=== PATIENT | female | born 1985 | race Caucasian/White ===

== ENCOUNTER 2017-11-04 21:53 | Emergency (ER) | payer SELFPAY ==
[2017-11-04 21:59] VITALS: BP 123/95; PULSE 93; PULSE 94; RESP 17; RESP 18; TEMP 37; O2SAT 98; BMI 23.4
--- NOTE | 2017-11-04 23:07 | RAD_ITS ---
STUDY: X-RAY CHEST REASON FOR EXAM: Female, 32 years old. Cough TECHNIQUE: Frontal and lateral views of the chest. COMPARISON: 12/07/2016 FINDINGS: The lungs are clear and expanded. There is no demonstrated pleural abnormality. Normal size heart. Normal mediastinum and beckie. Normal visualized pulmonary arteries. Normal visualized aortic arch and descending thoracic aorta. Normal visualized thoracic spine. Normal visualized ribs, clavicles, and shoulders. There is no demonstrated abnormality of the visualized soft tissue structures of the upper abdomen. RAD/Chest PA and Lateral IMPRESSION: Normal x-ray examination of the chest. Electronically Signed: Riley Miranda MD at 0:01 EDT Tel , Service support ,
--- NOTE | 2017-11-04 23:08 | RAD_ITS ---
STUDY: X-RAY - LUMBAR SPINE REASON FOR EXAM: Female, 32 years old. Fall TECHNIQUE: 3 view(s) of the lumbar spine were obtained. COMPARISON: None FINDINGS: Normal lumbar lordosis. There is no substantial scoliosis. There is a normal alignment of the vertebrae. Normal vertebral bodies and endplates. Normal disc space heights. Fallopian tube clips. RAD/Lumbar Spine 2 or 3 Views IMPRESSION: Normal x-ray examination of the lumbar spine. Comment: If there is further clinical concern for a radiographically occult spinal fracture, consider CT correlation if possible. Electronically Signed: Riley Miranda MD at 0:03 EDT Tel , Service support ,
[2017-11-04] MEDS: 0.9% Normal Saline 1,000 ML 150 ML IV (23:31)
[2017-11-04 23:48] LABS: Absolute Lymphocyte Count 4.09 X10^3/ul (0.83-4.51); Absolute Neutrophil Count 2.5 X10^3/uL (2.0-7.7); Basophil# 0.03 X10^3/uL; Basophil% 0.4 % (0-1); Eosinophils% 2.5 % (0-5); Hematocrit 42.5 % (37-47); Hemoglobin 13.8 g/dl (12.0-15.0); Lymphocyte # 4.09 X10^3/ul (4.0); Lymphocyte % 51.9 % (19-41); Mean Corp Hgb Conc 32.5 g/gl (32-36); Mean Corpuscular Hgb 30.5 pg (27.0-32.0); Mean Platelet Vol. 9.8 fl (6.2-12.0); Monocyte# 1.01 X10^3/uL; Monocyte% 12.8 % (0-10); Neutrophil # 2.54 X10^3/uL (2.7-7.7); Neutrophil % 32.3 % (47-70); Platelet Count 354 K/mm3 (150-450); RBC Distribution Width CV 13.3 % (11.6-14.6); RBC Distribution Width SD 44.3 fl (35.1-43.9); Red Blood Count 4.52 M/mm3 (4.2-5.4); White Blood Count 7.9 K/mm3 (4.4-11.0)
[2017-11-04 23:55] LABS: Mucous, Urine 0 SEEN /hpf (<or=2+); Red Blood Cells-Urine 0 SEEN /hpf (0-5)
[2017-11-04 23:56] LABS: Anion Gap 3 (5-15); BUN 10 mg/dL (7-18); BUN/Creat Ratio 17.4 RATIO (10-20); Calcium,Total 8.6 mg/dL (8.5-10.1); Chloride 104 mmol/L (98-107); Creatinine, Serum 0.58 mg/dL (0.55-1.02); EST Glomerular Filtration Rate 129 mL/min (>60); Est Glom Filt Rate - Afr Amer 156 mL/min (>60); Estimated Creatinine Clearance 110.13 ml/min; Glucose 84 mg/dL (74-106); Potassium 4.3 mmol/L (3.5-5.1); Sodium Level 140 mmol/L (136-145)
[2017-11-05 00:01] LABS: Color, Urine Yellow (Yellow); Glucose, Dipstick Normal (Normal); Ketone-Dipstick Negative (Negative); Leukocyte Esterase-Dipstick 25 /ul (Negative); Nitrite-Dipstick Negative (Negative); Occult Blood-Urine Negative /ul (Negative); Protein-Dipstick Negative (Negative); Specific Gravity, Urine 1.015 (1.002-1.030); Urine Bilirubin Dipstick Negative (Negative); Urine Clarity Cloudy (Clear); Urine Urobilinogen Normal (Normal)
[2017-11-05 00:02] LABS: POSITIVE COUNT NO; POSITIVE DIFFERENTIAL NO; POSITIVE MORPHOLOGY NO
[2017-11-05 00:12] LABS: Amorphous Sediment 3+; Bacteria RARE /hpf (None Seen); Squamous Epithelial Cells - UA 0-5 SEEN /hpf (5-10); White Blood Cells 0-5 SEEN /hpf (0-5); Yeast-Urine RARE /hpf (None Seen)
[2017-11-05 01:26] VITALS: BP 96/74; PULSE 76; O2SAT 97
--- NOTE | 2017-11-05 01:35 | ED.VISSUMM ---
- ER Visit Summary Date of Service: 11/05/17 Chief Complaint: [Cough and back pain] History of Present Illness: The patient is a 32 F [presents the emergency department with a cough that started 4 days ago. Patient coughing up some green phlegm at times. Patient generally feels weak and tired. Patient also states that she is had some pain in her back with spasm for about a week. Patient states she has a history of chronic back pain issues but fell a week ago. Patient denies any pain down the legs but at times does have some burning sensation down the back of her legs to her feet. Patient denies any change in bowel or bladder function. Patient denies weakness in extremities. Patient has not had a fever. Patient does have remote history of lymphoma that was in remission for the last 2-3 years. Patient also has a history of osteoporosis and chronic back pain.] Physical Examination: [HEENT-PERRLA, EOMI. Cranial nerves II through XII grossly intact. TMs clear. Mucous membranes moist. No adenopathy. Cardiovascular-regular rate and rhythm without murmur or ectopy Lungs-clear to auscultation, chest wall stable without crepitus or subcu emphysema Abdomen-normoactive bowel sounds, soft, nontender, no rebound or rigidity, no peritoneal signs. Back exam-patient has diffuse tenderness over lumbar spine. There is no ecchymosis or bruising noted. Deep tendon reflexes are plus 2 out of 4 bilaterally at the patella and Achilles. Patient has normal L5 extension bilaterally. Extremities-intact ?4, normal range of motion, normal pulses, atraumatic] Test Results: [Chest x-ray obtained was normal. Lumbar x-rays were normal. Patient had a CBC with differential that was normal. Chemistries were normal. Urinalysis was normal.] Emergency Department Course and Treatment: [] Treatment Plan: [She will be given a prescription for Tessalon Perles and 12 Percocet for severe pain. Patient advised to follow-up with her primary care physician within next 5-7 days.] Disposition: [Discharged home in stable condition. Patient advised to return if increased difficulty breathing, worsening back pain, weakness in the extremities, change in bowel or bladder function, or condition should worsen in any way.] Impression: [Viral URI Back pain-acute on chronic] This note was generated with [employer] software. It may contain incorrect words, spelling, and punctuation that were not noted in review of the chart prior to signing ED Disposition - Plan for ED Patient: Chief Complaint: Cough Referrals: Shruthi Amor MD [Primary Care Provider] -
--- NOTE | 2017-11-05 01:38 | ED.DEP ---
ED Disposition - Plan for ED Patient: Chief Complaint: Cough Instructions: ED Upper Resp Infec No Abx Tx, ED Low Back Pain Injury Prescriptions: Oxycodone HCl/Acetaminophen [Percocet 5/325] 1 tab PO Q6H PRN PRN 3 Days #12 tab PRN Reason: Pain Benzonatate [Tessalon Perle] 200 mg PO TID PRN PRN #20 cap PRN Reason: Cough Referrals: Shruthi Aomr MD [Primary Care Provider] - 5-7 Days
[2017-11-05] MEDS: oxyCODONE 5 MG Tablet PO (02:10)
== END 2017-11-05 02:11 | disposition home or self-care (01) ==
PROVIDERS: Emergency Provider Emergency Medicine; Family Provider Internal Medicine; PCP Internal Medicine
DX: J06.9 Acute upper respiratory infection, unspecified (principal); M54.9 Dorsalgia, unspecified; G89.29 Other chronic pain; Z72.0 Tobacco use; Z85.79 Personal history of other malignant neoplasms of lymphoid, hematopoietic and related tissues
CPT/HCPCS: 71046; 72100; 80048; 81001; 85025; 96360; 96361; 99283; J7030

== ENCOUNTER 2018-02-09 23:47 | Emergency (ER) | payer SELFPAY ==
[2018-02-09 23:49] VITALS: BP 107/77; PULSE 94; RESP 18; TEMP 36.4; O2SAT 98; BMI 22.8
--- NOTE | 2018-02-10 01:04 | ED.VISSUMM ---
- ER Visit Summary Date of Service: 02/10/18 Chief Complaint: Back pain History of Present Illness: The patient is a 33 F presenting with back pain. She states that this has been going on for the past 3 weeks. She states she was wrestling around with her kids before this started. She complains of back pain and right hip pain. No direct trauma to her hip. She has been ambulating without difficulty. She has an appointment with her orthopedic surgeon on February 14. She has been using Tylenol and ibuprofen at home for pain. Denies bowel or bladder incontinence. Denies numbness or weakness. Denies other complaints. Physical Examination: Vitals are stable. Patient is afebrile. Alert no acute distress. HEENT exam is unremarkable. Neck is supple. Lungs are clear and equal bilaterally. Heart is regular rate and rhythm. Abdomen is soft nontender nondistended. Back: Right paraspinal lumbar muscle tenderness, no midline tenderness Extremities are unremarkable. Skin is warm and dry. No focal neurologic deficit. Normal strength and sensation Remainder of exam is unremarkable. Emergency Department Course and Treatment: Patient is given Toradol, Norflex IM. She is advised to continue her Tylenol and ibuprofen at home. Advised to follow-up with her orthopedic surgeon. Advised return to ED for worsening complaints. Disposition: Discharge home Impression: Lumbar strain This note was generated with [employer] dictation software. It may contain incorrect words, spelling, and punctuation that were not noted in review of the chart prior to signing ED Disposition - Plan for ED Patient: Chief Complaint: Back Referrals: Shruthi Amor MD [Primary Care Provider] -
[2018-02-10] MEDS: Orphenadrine 60 MG/2 ML Ampul IM (01:06)
[2018-02-10] MEDS: Ketorolac 60 MG/2 ML Vial IM (01:06)
--- NOTE | 2018-02-10 01:07 | ED.DEP ---
ED Disposition - Plan for ED Patient: Chief Complaint: Back Instructions: ED Sprain Strain Lumbar Referrals: Shruthi Amor MD [Primary Care Provider] -
[2018-02-10 01:22] VITALS: BP 100/48; PULSE 81; RESP 18; O2SAT 96
== END 2018-02-10 01:23 | disposition home or self-care (01) ==
LOC: ED 02-10 00:58
PROVIDERS: Emergency Provider Emergency Medicine; Family Provider Internal Medicine; PCP Internal Medicine
DX: S39.012A Strain of muscle, fascia and tendon of lower back, initial encounter (principal); X58.XXXA Exposure to other specified factors, initial encounter; Y93.72 Activity, wrestling; Y92.9 Unspecified place or not applicable; Z96.643 Presence of artificial hip joint, bilateral; Z72.0 Tobacco use
CPT/HCPCS: 96372; 99282

== ENCOUNTER 2018-08-11 15:42 | Emergency (ER) | payer MEDICAID, SELFPAY ==
[2018-08-11 15:43] VITALS: BP 120/47; PULSE 131; RESP 16; TEMP 36.7; O2SAT 97; BMI 23.0
--- NOTE | 2018-08-11 15:52 | RAD_ITS ---
STUDY: X-RAY - RIGHT HIP REASON FOR EXAM: Female, 33 years old. Right hip and back pain. TECHNIQUE: 2 views of the hip and a single image of the pelvis. COMPARISON: July 20, 2016 FINDINGS: There are mild degenerative changes of the hips. Normal visualized superior and inferior pubic rami and ischial tuberosities. There are tubal ligation clips within the left pelvis. RAD/HIP, UNI W/ Pelvis 2-3 Views IMPRESSION: Mild degenerative changes of the hips. Electronically Signed: Tish Palacios MD at 16:17 EST Tel , Service support ,
--- NOTE | 2018-08-11 15:53 | ED.VISSUMM ---
- ER Visit Summary Date of Service: 08/11/18 Chief Complaint: Right hip pain History of Present Illness: The patient is a 33 F who has pain in the right hip and right lower back. She states it woke her up from sleep this morning. She denies any injuries. The pain is in the right hip and radiates to the right lumbar area. Is worse with movement. Nothing makes it better. She tried Tylenol, Motrin and Aleve. She denies dysuria or fever. No incontinence. She states she has a history of right hip surgery and has had IT band release surgeries previously. She has a history of lymphoma and had TTP about 10 years ago. Physical Examination: Vital signs reviewed. HEENT exam unremarkable. Heart is tachycardic and regular without murmurs. Lungs are clear. Abdomen soft with right pelvic tenderness to palpation. She has tenderness in the right paraspinal lumbar area. Her right hip is tender to palpation diffusely. She has pain with any range of motion. Skin exam reveals an old abscess in the right axilla. Her neurologic exam is normal. Test Results: Right hip x-ray reveals degenerative changes. Urinalysis reveals UTI Emergency Department Course and Treatment: Patient was given Toradol for pain. She does have a pretty significant urinary tract infection. I will treat her with Bactrim. I will give her Dolobid for pain at home. She will follow-up with her PCP Treatment Plan: [] Disposition: Discharge Impression: Right hip pain, UTI This note was generated with [employer] dictation software. It may contain incorrect words, spelling, and punctuation that were not noted in review of the chart prior to signing ED Disposition - Plan for ED Patient: Chief Complaint: Back Referrals: Shruthi Amor MD [Primary Care Provider] -
[2018-08-11] MEDS: Ketorolac 60 MG/2 ML Vial IM (16:00)
[2018-08-11 18:13] LABS: Mucous, Urine 0 SEEN /hpf (<or=2+); Red Blood Cells-Urine 0 SEEN /hpf (0-5)
[2018-08-11 18:22] LABS: Color, Urine Yellow (Yellow); Glucose, Dipstick Normal (Normal); Ketone-Dipstick Negative (Negative); Leukocyte Esterase-Dipstick 500 /ul (Negative); Nitrite-Dipstick Positive (Negative); Occult Blood-Urine 50 /ul (Negative); Protein-Dipstick 30 mg/dl (Negative); Urine Bilirubin Dipstick Negative (Negative); Urine Clarity Cloudy (Clear); Urine Urobilinogen Normal (Normal)
[2018-08-11 18:25] LABS: Internal QC Validated? YES +Cl - CLEAR BKGD; Pregnancy, Urine Negative Negative
[2018-08-11 18:35] LABS: Squamous Epithelial Cells - UA 0-5 SEEN /hpf (5-10); White Blood Cells >100 SEEN /hpf (0-5)
[2018-08-11 18:36] LABS: Bacteria 3+ /hpf (None Seen)
--- NOTE | 2018-08-11 18:39 | ED.DEP ---
ED Disposition - Plan for ED Patient: Disposition: Home or Assisted Living Chief Complaint: Back Instructions: ED UTI Cystitis Female Prescriptions: Nitrofurantoin Macrocrystals [Macrobid] 100 mg PO Q12 #14 cap Diflunisal [Dolobid] 500 mg PO TID #20 tab Referrals: Shruthi Amor MD [Primary Care Provider] -
[2018-08-11] MEDS: Nitrofurantoin Macrocrystals 100 MG Capsule PO (18:46)
--- NOTE | 2018-08-11 18:49 | ED.RN ---
DISCHARGE INSTRUCTIONS GIVEN TO AND REVIEWED WITH PATIENT, PATIENT DENIES QUESTIONS OR CONCERNS AND VOICES UNDERSTANDING OF DISCHARGE INSTRUCTIONS. PT AMBULATES OUT OF ROOM WITHOUT DIFFICULTY.
== END 2018-08-11 18:50 | disposition home or self-care (01) ==
PROVIDERS: Emergency Provider Emergency Medicine; Family Provider Internal Medicine; PCP Internal Medicine
DX: M25.551 Pain in right hip (principal); N39.0 Urinary tract infection, site not specified; Z85.79 Personal history of other malignant neoplasms of lymphoid, hematopoietic and related tissues; Z72.0 Tobacco use
CPT/HCPCS: 73502; 81001; 81025; 96372; 99283

== ENCOUNTER 2018-10-11 18:09 | Inpatient (IN) | payer MEDICAID, SELFPAY ==
[2018-10-11 18:10] VITALS: BP 99/67; PULSE 91; RESP 18; TEMP 36.6; O2SAT 100; BMI 25.2
--- NOTE | 2018-10-11 18:24 | CT_ITS ---
STUDY: CT ABDOMEN AND PELVIS WITHOUT CONTRAST REASON FOR EXAM: Female, 33 years old. Abdominal pain, jaundice RADIATION DOSAGE (If Supplied By Facility): CTDIvol = ( 11.43 ) mGy, DLP = ( 640.84 ) mGycm TECHNIQUE: Transaxial images were obtained from the dome of the diaphragm to the symphysis pubis without oral contrast, and without intravenous contrast. Sagittal and coronal images were reconstructed. Individualized dose optimization techniques were used for this CT. COMPARISON: July 20, 2016 FINDINGS: The visualized lung bases are unremarkable. The visualized portions of the heart are within normal limits. Normal liver. Normal gallbladder and extrahepatic biliary system. Questionable trace pericholecystic fluid. Normal spleen. Normal pancreas. Normal bilateral adrenal glands. Normal right kidney. Normal left kidney. Normal visualized stomach. Mild ileus of the proximal small intestine. Normal colon. The appendix is visualized and appears normal. Normal abdominal aorta. Normal inferior vena cava. Normal retroperitoneum. Normal urinary bladder. Mild pelvic fluid. Left adnexal 1.5 cm cystic nodule. Normal abdominal wall. Normal osseous structures. CT/Abdomen/Pelvis W IV Cont ONLY IMPRESSION: Possible small bowel ileus. Mild pelvic fluid. Small left adnexal cystic nodule. Electronically Signed: Young Victor DO at 20:58 EDT Tel [phone], Service support ,
--- NOTE | 2018-10-11 18:25 | ED.VISSUMM ---
- ER Visit Summary Date of Service: 10/11/18 Chief Complaint:, Pain, jaundice History of Present Illness: The patient is a 33 F who presents with abdominal pain as well as jaundice. She states the pain started yesterday. It sharp and diffuse throughout her abdomen. Nothing makes it better or worse. She has had nausea without vomiting. No diarrhea or constipation. She denies any urinary symptoms. She feels weak. She has no history of jaundice in the past. The jaundice has been ongoing for 4 days. She has no history of cirrhosis or any liver issues. She denies fevers. She has a history of a tubal ligation and has had tumors removed because of lymphoma but no other abdominal surgeries. Physical Examination: Vital signs reviewed. HEENT exam unremarkable. Heart is regular rate and rhythm without murmurs. Lungs are clear to auscultation. Abdomen is soft with diffuse tenderness. There is no guarding or rebound tenderness. Extremities reveal no edema. Skin exam showed jaundice. Neurologic exam normal. Test Results: CBC unremarkable except for platelets of 483. Potassium 3.2, glucose 108. Total bilirubin 9.7, direct bili of 7.87. ALT 1176, AST 921. Lipase normal. CAT scan reveals a small bowel ileus with some mild pelvic fluid. Right upper quadrant ultrasound is normal Emergency Department Course and Treatment: Patient was given morphine and Zofran. She still required more pain medications were given fentanyl. Her gallbladder is normal. I am unclear the etiology of her jaundice and hyperbilirubinemia. Patient will require admission. I will add on an acute hepatitis panel. Patient will be discussed with the hospitalist for admission Treatment Plan: [] Disposition: Admit Impression: Jaundice, transaminitis This note was generated with [employer] dictation software. It may contain incorrect words, spelling, and punctuation that were not noted in review of the chart prior to signing ED Disposition - Plan for ED Patient: Referrals: Shruthi Amor MD [Primary Care Provider] -
[2018-10-11] MEDS: Morphine 4 MG/ML Syringe IV ×2 (18:46→23:22)
[2018-10-11] MEDS: Ondansetron 4 MG/2 ML Vial IV ×2 (18:46→23:22)
[2018-10-11 18:48] LABS: Absolute Lymphocyte Count 2.78 X10^3/ul (0.83-4.51); Absolute Neutrophil Count 5.4 X10^3/uL (2.0-7.7); Basophil# 0.05 X10^3/uL; Basophil% 0.5 % (0-1); Differential Indicated SCAN CRITERIA MET; Eosinophil# 0.13 X10^3/uL; Eosinophils% 1.4 % (0-5); Hematocrit 38.7 % (37-47); Hemoglobin 13.1 g/dl (12.0-15.0); Lymphocyte # 2.78 X10^3/ul (4.0); Lymphocyte % 28.9 % (19-41); Mean Corp Hgb Conc 33.9 g/gl (32-36); Mean Corpuscular Hgb 28.4 pg (27.0-32.0); Mean Corpuscular Volume 83.9 fL (81-99); Mean Platelet Vol. 9.8 fl (6.2-12.0); Monocyte# 1.22 X10^3/uL; Monocyte% 12.7 % (0-10); Neutrophil # 5.42 X10^3/uL (2.7-7.7); Neutrophil % 56.3 % (47-70); POSITIVE COUNT NO; POSITIVE DIFFERENTIAL NO; POSITIVE MORPHOLOGY YES; Platelet Count 483 K/mm3 (150-450); RBC Distribution Width CV 22.4 % (11.6-14.6); RBC Distribution Width SD 64.7 fl (35.1-43.9); Red Blood Count 4.61 M/mm3 (4.2-5.4); White Blood Count 9.6 K/mm3 (4.4-11.0)
[2018-10-11 19:11] LABS: AST(SGOT) 921 U/L (15-37); Alanine Aminotransfer ALT/SGPT 1176 U/L (13-56); Albumin, Serum 2.9 g/dL (3.2-5.0); Alkaline Phosphatase 446 U/L (45-117); Anion Gap 7 (5-15); BUN 6 mg/dL (7-18); BUN/Creat Ratio 10.3 RATIO (10-20); Bilirubin, Direct 7.87 mg/dL (0.00-0.30); Calcium,Total 8.4 mg/dL (8.5-10.1); Chloride 103 mmol/L (98-107); Creatinine, Serum 0.58 mg/dL (0.55-1.02); EST Glomerular Filtration Rate 127 mL/min (>60); Est Glom Filt Rate - Afr Amer 153 mL/min (>60); Estimated Creatinine Clearance 109.11 ml/min; Globulin 4.2 g/dL (2.2-4.2); Glucose 108 mg/dL (74-106); Lipase 97 U/L (73-393); Potassium 3.2 mmol/L (3.5-5.1); Pregnancy, Serum, hCG Quali. NEGATIVE Negative (0-9 Nonpreg); Protein, Total 7.1 g/dL (6.4-8.2); Sodium Level 136 mmol/L (136-145)
[2018-10-11 20:14] LABS: Anisocytosis 2+; Differential Comment SCANNED; Platelet Estimate SLT INC (ADEQ); Target Cells 2+
[2018-10-11 20:15] LABS: Atypical Lymphocyte RARE %
[2018-10-11 20:26] LABS: Mucous, Urine 0 SEEN /hpf (<or=2+); Red Blood Cells-Urine 0 SEEN /hpf (0-5)
[2018-10-11] MEDS: fentaNYL 100 MCG/2 ML Ampul 50 MCG IV (20:26)
[2018-10-11 20:49] LABS: Color, Urine Yellow (Yellow); Glucose, Dipstick Normal (Normal); Ketone-Dipstick Negative (Negative); Leukocyte Esterase-Dipstick 100 /ul (Negative); Nitrite-Dipstick Negative (Negative); Occult Blood-Urine Negative /ul (Negative); Protein-Dipstick Negative (Negative); Urine Clarity Cloudy (Clear); Urine Urobilinogen 4 mg/dl (Normal)
[2018-10-11 20:59] LABS: Urine Bilirubin Dipstick 3 mg/dL (Negative)
--- NOTE | 2018-10-11 21:00 | US_ITS ---
STUDY: ABDOMINAL ULTRASOUND - RIGHT UPPER QUADRANT REASON FOR VISIT: Female, 33 years old. Jaundice abdominal discomfort and nausea TECHNIQUE: Ultrasound evaluation of the right upper quadrant was performed with real-time and static german-scale imaging. TECHNICAL QUALITY: Adequate. COMPARISON: None. FINDINGS: Liver: The liver measures 18.7 cm. There is normal echogenicity of the liver. The bile ducts are within normal limits. There is hepatic color flow. The direction of portal flow is hepatopetal. There is no demonstrated mass lesion. Gallbladder: Normal distended gallbladder. The gallbladder wall measures 2 mm. There is a negative sonographic Renee's sign. There is no pericholecystic fluid. There are no gallstones. Common Bile Duct (C.B.D.): The common bile duct measures 5 mm. Pancreas: Normal size of the head, body and tail of the pancreas. There is normal echogenicity of the pancreas. There is no demonstrated pancreatic mass or cyst. Right Kidney: Normal size of the right kidney. The right kidney measures 11.1 x 4.2 x 3.9 cm. Normal renal cortex. The right cortex measures 1.5 cm. There is no demonstrated renal mass or cyst. There is no right hydronephrosis. US/Gallbladder IMPRESSION: Normal right upper quadrant ultrasound examination. Electronically Signed: Marcelino Gray MD at 23:03 EDT , Service support ,
[2018-10-11 21:01] LABS: Bacteria 1+ /hpf (None Seen); Squamous Epithelial Cells - UA 0-5 SEEN /hpf (5-10); White Blood Cells 0-5 SEEN /hpf (0-5)
[2018-10-11 23:25] VITALS: BP 108/73; PULSE 84; RESP 16; O2SAT 97
--- NOTE | 2018-10-11 23:32 | HP.PCM_ITS ---
Problem List (1) Acute hepatitis Status: Acute (2) History of lymphoma Status: Chronic History of Present Illness Date of Admission: 10/11/18 Chief Complaint: Yellowish discoloration of skin The patient is a 33 year old F with a significant history of asthma; previous tobacco abuse; lymphoma status post remission; who reportedly got treated for some bladder infection in June 2018 now presenting with 4 days history of persistent yellowish discoloration of her skin that was noticed by her family. Associated with her symptoms is weakness; nausea; vomiting and headache. Patient reports that on the day of presentation he took a one-time dose of 4 tablets of 500 mg of Tylenol because of headache. She reported that she is unable to take NSAIDs because of history of bleeding. She reported that her boyfriend is at the halfway right now and the last time she had any sexual intercourse with his boyfriend was in August 2018. His sexual affair has been unprotected with his boyfriend. At the emergency department patient was noted to have elevated liver enzymes as well as hypokalemia. Ultrasound of her gallbladder was unremarkable for hepatobiliary disease. CT of her abdomen showed possible small bowel ileus; mild pelvic fluid and small left adrenal cystic nodule. Emergency department doctor ordered an acute hepatitis panel. Past Medical History Past Medical History (Chronic Problems): Chronic Problems History of lymphoma (Chronic) COPD (chronic obstructive pulmonary disease) (Chronic) Asthma (Chronic) Allergies aspirin Allergy (Verified 10/11/18 18:13) Other cyclobenzaprine HCl [From Flexeril] Allergy (Verified 10/11/18 18:13) Hives hydrocodone bitartrate [From Vicodin] Allergy (Verified 10/11/18 18:13) Hives morphine Allergy (Verified 10/11/18 18:13) Swelling naproxen Allergy (Verified 10/11/18 18:13) Chest tightness Penicillins Allergy (Verified 10/11/18 18:13) Unknown Sulfa (Sulfonamide Antibiotics) Allergy (Verified 10/11/18 18:13) Laryngospasms tramadol Allergy (Verified 10/11/18 18:13) Chest tightness Home Medications: Ambulatory Orders Medication Instructions Recorded Albuterol Inhaler [Ventolin Hfa 2 puff INHALATION Q6H PRN PRN 10/11/18 (SP)] Surgical History: - - Surgery for lymphoma removal. Lives: With Family Smoking Status: Current every day smoker Tobacco Use: Cigarettes - *Family History Maternal History Items: Heart Disease - Her mother from massive heart attack, - - brain cancer and lymphoma; mental illness Paternal History Items: Cancer, Heart Disease, Hypertension, - - Mental illness Review of Systems Constitutional: Reports: Fatigue. Denies: Chills, Fever, Weight Change HEENT: Reports: Head Aches. Denies: Sinus Congestion, Sinus Drainage Cardiovascular: Denies: Chest Pain, Palpitations Respiratory: Denies: Cough, Shortness of breath at rest, Sputum production Gastrointestinal: Reports: Abdominal Pain, Nausea, Vomiting Genitourinary: Denies: Dysuria Musculoskeletal: Denies: Joint Pain, Joint Tenderness Skin: Denies: Rash, Wounds Neurological: Denies: Numbness, Tingling, Focal weakness Psychiatric: Denies: Anxiety, Depression, Homicidal Ideations, Suicidal Ideations Hematologic/ Lymphatic: Denies: Easy Bruising, Easy Bleeding VTE Information - Inpt Only VTE Present on Admission: No VTE Mechan Device Prophylaxis: None VTE Pharm Prophylaxis ordered?: No Reason prophylaxis not ordered:: Treatment Not Indicated - Low risk Patient Problems: Active and Suspected Problems Acute hepatitis (Acute) - Physical Exam General: Alert, Oriented x3, Cooperative, - - Patient seen visibly scratching her body and complain of itching. HEENT: Atraumatic, PERRLA, EOMI, Normocephalic, - - Scleral icterus Neck: Supple, No JVD, Negative Carotid Bruits Lungs: Clear to auscultation, Normal air movement Cardiovascular: Regular rate, No murmurs Abdomen: Bowel Sounds Present, Soft, Non Tender Extremities: No edema, Capillary Refill Less than 3 Seconds Skin: No rashes, No breakdown, - - Jaundiced skin Musculoskeletal: No Tenderness to Palpation of Joints or Extremities Neurological: Neuro grossly intact Psych/Mental Status: Normal Affect, Appropriate Vital Signs Temp Pulse Resp BP Pulse Ox 97.9 F 84 16 108/73 97 10/11/18 18:10 10/11/18 23:25 10/11/18 23:25 10/11/18 23:25 10/11/18 23:25 Oxygen Delivery Method Room Air Weight: 62.596 kg Body Mass Index (BMI) 25.2 Laboratory Tests Past 24 Hrs 10/11/18 10/11/18 10/11/18 18:30 18:30 18:30 WBC 9.6 RBC 4.61 Hgb 13.1 Hct 38.7 MCV 83.9 MCH 28.4 MCHC 33.9 RDW 22.4 H RDW Differential 64.7 H Plt Count 483 H MPV 9.8 Immature Gran % (Auto) 0.200 Neut % (Auto) 56.3 Lymph % (Auto) 28.9 [place] % (Auto) 12.7 H Eos % (Auto) 1.4 Baso % (Auto) 0.5 Absolute Neuts (auto) 5.4 Absolute Lymphs (auto) 2.78 Total Counted Not Reportable Differential Comment SCANNED Atypical Lymphocytes RARE Platelet Estimate SLT INC Anisocytosis 2+ Target Cells 2+ Sodium 136 Potassium 3.2 L Chloride 103 Carbon Dioxide 26.0 Anion Gap 7 BUN 6 L Creatinine 0.58 Estim Creat Clear Calc 109.11 Est GFR (MDRD) Af Amer 153 Est GFR (MDRD) Non-Af 127 BUN/Creatinine Ratio 10.3 Glucose 108 H Calcium 8.4 L Total Bilirubin 9.70 H Direct Bilirubin 7.87 H AST 921 H ALT 1176 H Alkaline Phosphatase 446 H Total Protein 7.1 Albumin 2.9 L Globulin 4.2 Lipase 97 Serum , Qual NEGATIVE Urine Color Urine Clarity Urine pH Ur Specific [place] Urine Protein Urine Glucose (UA) Urine Ketones Urine Occult Blood Urine Nitrite Urine Bilirubin Urine Urobilinogen Ur Leukocyte Esterase Urine RBC Urine WBC Ur Squamous Epith Cells Urine Bacteria Urine Mucus 10/11/18 20:18 WBC RBC Hgb Hct MCV MCH MCHC RDW RDW Differential Plt Count MPV Immature Gran % (Auto) Neut % (Auto) Lymph % (Auto) [place] % (Auto) Eos % (Auto) Baso % (Auto) Absolute Neuts (auto) Absolute Lymphs (auto) Total Counted Differential Comment Atypical Lymphocytes Platelet Estimate Anisocytosis Target Cells Sodium Potassium Chloride Carbon Dioxide Anion Gap BUN Creatinine Estim Creat Clear Calc Est GFR (MDRD) Af Amer Est GFR (MDRD) Non-Af BUN/Creatinine Ratio Glucose Calcium Total Bilirubin Direct Bilirubin AST ALT Alkaline Phosphatase Total Protein Albumin Globulin Lipase Serum , Qual Urine Color Yellow Urine Clarity Cloudy Urine pH 7.0 Ur Specific [place] 1.010 Urine Protein Negative Urine Glucose (UA) Normal Urine Ketones Negative Urine Occult Blood Negative Urine Nitrite Negative Urine Bilirubin 3 H Urine Urobilinogen 4 H Ur Leukocyte Esterase 100 H Urine RBC 0 SEEN Urine WBC 0-5 SEEN Ur Squamous Epith Cells 0-5 SEEN Urine Bacteria 1+ Urine Mucus 0 SEEN Assessment/Plan All Active Problems Acute hepatitis (Acute) Left adnexal tenderness (Acute) Hypokalemia (Acute) Nausea & vomiting (Acute) The patient is a 33 year old F with a significant history of asthma; previous tobacco abuse; lymphoma status post remission; who reportedly got treated for some bladder infection in June 2018 now presenting with 4 days history of persistent yellowish discoloration of her skin and found to have severely elevated liver enzymes consistent for acute hepatitis. Acute hepatitis Abdomen/Pelvis CT: Possible small bowel ileus. Mild perinephric fluid. Small left adnexal cystic nodule. Independent review showed that her liver and gallbladder was unremarkable. Likely possible small bowel ileus may be from inflammation from her hepatitis. US of the gallbladder was unremarkable. This was independently reviewed. I agree with radiologist interpretation. Different diagnosis includes viral hepatitis; hepatic failure secondary to medicine/drug use; or other. Patient noted to have elevated liver enzymes Acute hepatitis panel ordered at the ED; Follow Tylenol level ordered. Supportive treatment with IV normal saline hydration; antiemetics with Zofran; and Benadryl for itching. Patient reports bleeding with NSAIDs. Because of her acute hepatitis will shy away from Tylenol at this time. Tramadol ordered. Hypokalemia On presentation her potassium was 3.2 Lactated Ringer's with 40 mEq of potassium ordered Potassium chloride 40 mEq x1 dose ordered. Trend BMP. Thrombocytosis Chronic Likely due to infection. Trend CBC Asthma Not in acute exacerbation PRN albuterol continued History of drug use Reportedly the patient snorts methamphetamine and heroin. 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 Counselled Tobacco Abuse Counselled Nicotine patch ordered DVT prophylaxis Low risk. Encouraged to ambulate. Code Visit Inpatient E&M: 37137 Init Hosp L3
[2018-10-12 00:30] VITALS: BMI 24.0
[2018-10-12 00:40] VITALS: BMI 24.0
[2018-10-12 01:08] VITALS: BP 109/70; PULSE 86; RESP 18; TEMP 36.7; O2SAT 99
[2018-10-12] MEDS: traMADol 50 MG Tablet PO ×3 (01:28→19:25)
[2018-10-12] MEDS: 0.9% NaCl Peripheral Flush Adult/Peds IV ×2 (01:29→11:43)
[2018-10-12] MEDS: DiphenhydrAMINE 25 MG Capsule PO ×4 (01:34→21:28)
[2018-10-12 01:43] LABS: Acetaminophen (Tylenol) Level < 2.0 ug/mL (10.0-30.0)
[2018-10-12 06:15] VITALS: BP 91/51; PULSE 56; RESP 16; TEMP 37; O2SAT 100
[2018-10-12 06:36] LABS: Hematocrit 35.5 % (37-47); Mean Corp Hgb Conc 33.8 g/gl (32-36); Mean Corpuscular Hgb 28.4 pg (27.0-32.0); Mean Corpuscular Volume 84.1 fL (81-99); Mean Platelet Vol. 10.4 fl (6.2-12.0); Platelet Count 429 K/mm3 (150-450); RBC Distribution Width CV 22.1 % (11.6-14.6); RBC Distribution Width SD 63.6 fl (35.1-43.9); Red Blood Count 4.22 M/mm3 (4.2-5.4); White Blood Count 8.1 K/mm3 (4.4-11.0)
[2018-10-12 06:39] LABS: Scan Indicated on CBC? Y/N YES- FLAGS NOTED
--- NOTE | 2018-10-12 06:50 | PCM.PN.HOSP ---
Patient Problems: Active and Suspected Problems Acute hepatitis (Acute) Subjective: Patient with no acute events overnight per nursing report;, patient states that she still having abdominal pain but is very comfortable appearing and when distracted examination is non-concerning. Patient notes had a bowel movement recently that was normal appearing. She denies any current nausea or emesis. Discussed at length drug abuse and she states she is currently only using cannabis even though current appearance concerning for drug-induced hepatitis and not specifically Tylenol especially given repeat levels are less than 2. Patient denies fevers, chills, chest pain or dyspnea. Objective: Physical Examination: General: awake, alert, oriented x 3 and cooperative, seated upright in bed in no apparent distress. Skin: Jaundiced color, turgor, no icterus, cyanosis. HEENT: AT/NC, EOMI, PERRLA, mildly dry MM, extremely poor dentition with several caries notable. Lungs: CTA bilaterally, moderate effort, mild decrease BL bases, no rales, ronchi or wheezing. Heart: Regular rate and rhythm; no gallop, rub audible. Abdomen: soft, NTTP distracted however when focused on the examination underlies diffuse discomfort, mildly hyperactive bowel sounds, difficult to assess HSM secondary to need for deep palpation. Extremities: no cyanosis, clubbing, or edema. Neurological: patient awake, alert, oriented x 3; cognitive function intact; pupils equally reactive to light and accomodation; cranial nerves II-XII grossly normal, moving all 4 extremities, no focal deficits, strength mildly globally decreased. Psychiatric: affect appears normal, no acute evidence of depressive or anxiety feelings. Vitals/I&O's: Vital Signs Temp Pulse Resp BP Pulse Ox 98.6 F 56 L 16 91/51 L 100 10/12/18 06:15 10/12/18 06:15 10/12/18 06:15 10/12/18 06:15 10/12/18 06:15 Oxygen Delivery Method Room Air Weight: 131 lb 6.328 oz Body Mass Index (BMI) 24.0 Intake and Output for Last 24 Hours 10/10/18 10/11/18 10/12/18 23:59 23:59 23:59 Intake Total 466 / 466 Balance 466 / 466 Laboratory Results 10/11/18 18:30: WBC 9.6, RBC 4.61, Hgb 13.1, Hct 38.7, MCV 83.9, MCH 28.4, MCHC 33.9, RDW 22.4 H, RDW Differential 64.7 H, Plt Count 483 H, MPV 9.8, Immature Gran % (Auto) 0.200, Neut % (Auto) 56.3, Lymph % (Auto) 28.9, [place] % (Auto) 12.7 H, Eos % (Auto) 1.4, Baso % (Auto) 0.5, Absolute Neuts (auto) 5.4, Absolute Lymphs (auto) 2.78, Total Counted Not Reportable, Differential Comment SCANNED, Atypical Lymphocytes RARE, Platelet Estimate SLT INC, Anisocytosis 2+, Target Cells 2+ 10/11/18 18:30: Sodium 136, Potassium 3.2 L, Chloride 103, Carbon Dioxide 26.0, Anion Gap 7, BUN 6 L, Creatinine 0.58, Estim Creat Clear Calc 109.11, Est GFR (MDRD) Af Amer 153, Est GFR (MDRD) Non-Af 127, BUN/Creatinine Ratio 10.3, Glucose 108 H, Calcium 8.4 L, Total Bilirubin 9.70 H, Direct Bilirubin 7.87 H, AST 921 H, ALT 1176 H, Alkaline Phosphatase 446 H, Total Protein 7.1, Albumin 2.9 L, Globulin 4.2, Lipase 97 10/11/18 18:30: Serum , Qual NEGATIVE 10/11/18 18:30: Hepatitis A IgM Ab Pending, Hep Bs Antigen Pending, Hep B Core IgM Ab Pending, Hepatitis C Ab (EIA) Pending 10/11/18 18:30: Acetaminophen < 2.0 L 10/11/18 20:18: Urine Color Yellow, Urine Clarity Cloudy, Urine pH 7.0, Ur Specific [place] 1.010, Urine Protein Negative, Urine Glucose (UA) Normal, Urine Ketones Negative, Urine Occult Blood Negative, Urine Nitrite Negative, Urine Bilirubin 3 H, Urine Urobilinogen 4 H, Ur Leukocyte Esterase 100 H, Urine RBC 0 SEEN, Urine WBC 0-5 SEEN, Ur Squamous Epith Cells 0-5 SEEN, Urine Bacteria 1+, Urine Mucus 0 SEEN 10/12/18 06:00: Sodium Pending, Potassium Pending, Chloride Pending, Carbon Dioxide Pending, Anion Gap Pending, BUN Pending, Creatinine Pending, Est GFR (MDRD) Af Amer Pending, Est GFR (MDRD) Non-Af Pending, BUN/Creatinine Ratio Pending, Glucose Pending, Calcium Pending, Total Bilirubin Pending, Direct Bilirubin Pending, AST Pending, ALT Pending, Alkaline Phosphatase Pending, Total Protein Pending, Albumin Pending 10/12/18 06:00: WBC 8.1, RBC 4.22, Hgb 12.0, Hct 35.5 L, MCV 84.1, MCH 28.4, MCHC 33.8, RDW 22.1 H, RDW Differential 63.6 H, Plt Count 429, MPV 10.4 10/12/18 06:00: HIV 1&2 Antibody Pending Current Medications Albuterol Sulfate (Ventolin Aerosols) 2.5 mg INHALATION Q2H PRN PRN PRN Reason: sob/wheezing Diphenhydramine HCl (Benadryl) 25 mg PO Q6H PRN PRN PRN Reason: ITCHING Last Admin: 10/12/18 01:34 Dose: 25 mg Potassium Chloride 40 meq/ (Lactated Ringer's) 1,020 mls @ 100 mls/hr IV .[id number] ODELL Stop: 10/12/18 10:55 Last Admin: 10/12/18 01:29 Dose: 100 mls/hr Influenza Virus Vaccine Quadrival (Fluarix/Fluzone) 0.5 ml IM .ONCE ONE Stop: 10/12/18 10:01 Magnesium Hydroxide (Milk Of Magnesia) 30 ml PO DAILY PRN PRN PRN Reason: Constipation Nicotine (Nicoderm Cq (Pbkc)) 21 mg TRANSDERM. DAILY ODELL Last Admin: 10/12/18 04:31 Dose: Not Given Ondansetron HCl (Zofran) 4 mg IV Q8H PRN PRN PRN Reason: NAUSEA Sodium Chloride () 5 - 15 ml IV UD PRN PRN Reason: SALINE FLUSH Last Admin: 10/12/18 01:29 Dose: 10 ml Tramadol HCl (Ultram) 50 mg PO Q8H PRN PRN PRN Reason: MODERATE PAIN (4-5/10) Last Admin: 10/12/18 01:28 Dose: 50 mg Medical Necessity - Tobacco Use Smoking Status: Current every day smoker Tobacco Use: Cigarettes Assessment/Plan All Active Problems Acute hepatitis (Acute) Left adnexal tenderness (Acute) Hypokalemia (Acute) Nausea & vomiting (Acute) The patient is a 33 y/o F w/ PMHx: History of Lymphoma in remission, Asthma/COPD, Former Tobacco use, Hx Polysubstance abuse who presents to the [facility] ED on 10/11/18 with history of onset jaundice, weakness, nausea, emesis, headache x 4 days with intake 500 mg tylenol x 4 tablets x 1. (1) Painless Jaundice with Elevated Bilirubin, LFTs: Workup in the ED included T 97.9, heart rate 91, BP 99/67, respiratory rate 18, 100% room air, CBC with W BC 9.6, hemoglobin 13.1, platelet 43 without market left shift, CMP with potassium 3.2, glucose 108, T bili 9.7, D bili 7.87, AST/ALT 921/1176, Alk phos 446, lipase 97, UDS unremarkable, acetaminophen < 2, hepatitis panel pending, GB US unremarkable, CT A/P w/ possible small bowel ileus, mild pelvic fluid, small left adnexal cystic nodule. Admitted to [place], will repeat tylenol level and also obtain salicylates, obtain HIV, RPR, CG/Ch PCR given history, obtain coags, continue hydration. (2) History of Lymphoma: Noted history, in remission, pending work-up as noted #1. (3) Asthma/COPD: HOB, IS, PRN albuterol. (4) Hx Polysubstance abuse: Notes clean since 01/2018 aside cannabis and adamantly denies any facility designer drug usage. Hepatitis panel, HIV, UDS pending. (5) History of Tobacco use: Encourage continued tobacco cessation. (6) DVT Prophylaxis: Low risk, ambulation. Code Visit Inpatient E&M: 43796 Subs Hosp L3
[2018-10-12 06:55] LABS: AST(SGOT) 753 U/L (15-37); Alanine Aminotransfer ALT/SGPT 961 U/L (13-56); Albumin, Serum 2.4 g/dL (3.2-5.0); Alkaline Phosphatase 359 U/L (45-117); Anion Gap 5 (5-15); BUN 4 mg/dL (7-18); BUN/Creat Ratio 8.4 RATIO (10-20); Bilirubin, Direct 6.42 mg/dL (0.00-0.30); Calcium,Total 8.5 mg/dL (8.5-10.1); Chloride 105 mmol/L (98-107); Creatinine, Serum 0.48 mg/dL (0.55-1.02); Differential Comment SCAN; EST Glomerular Filtration Rate 159 mL/min (>60); Est Glom Filt Rate - Afr Amer 193 mL/min (>60); Estimated Creatinine Clearance 131.85 ml/min; Globulin 3.6 g/dL (2.2-4.2); Glucose 96 mg/dL (74-106); Potassium 4.2 mmol/L (3.5-5.1); Sodium Level 138 mmol/L (136-145)
[2018-10-12 07:15] VITALS: O2SAT 96
[2018-10-12 07:29] LABS: International Normalized Ratio 1.1; Prothrombin Time (Protime)PT. 13.7 SECONDS (11.7-14.9)
[2018-10-12] MEDS: 0.9% Normal Saline 1,000 ML 999 ML IV (07:30)
[2018-10-12 07:38] LABS: Acetaminophen (Tylenol) Level < 2.0 ug/mL (10.0-30.0)
[2018-10-12 07:40] LABS: Salicylate < 1.7 mg/dL (2.8-20.0)
[2018-10-12 07:46] LABS: Amphetamine Urine VISTA NEGATIVE (<1000 ng/mL); Barbiturate Urine VISTA NEGATIVE (< 200 ng/mL); Benzodiazepine Urine VISTA NEGATIVE (< 200 ng/mL); Cocaine Urine VISTA NEGATIVE (< 300 ng/mL); Ecstacy Urine VISTA NEGATIVE (< 500 ng/mL); Methadone Urine VISTA NEGATIVE (< 300 ng/mL); PCP Urine VISTA NEGATIVE (< 25 ng/mL); THC Urine VISTA POSITIVE (< 50 ng/mL); Vista UDS pH Range 7
[2018-10-12 08:01] LABS: GGTP 194 U/L (5-55)
[2018-10-12 08:27] LABS: HIV - WCH Non-Reactive (Nonreactive)
[2018-10-12] MEDS: 0.9% Normal Saline 1,000 ML 150 ML IV ×3 (08:45→21:31)
[2018-10-12 08:48] VITALS: BP 98/64; PULSE 75; RESP 18; TEMP 36.7; O2SAT 99
[2018-10-12 08:53] LABS: Chlamydia Trachomatis by PCR Negative (Negative); Neisserai gonorrhoeae by PCR Negative (Negative); Probe Check PASS; Sample Adequacy Control PASS; Specimen Processing Control PASS
--- NOTE | 2018-10-12 11:18 | CASEMGMT ---
Social Work Assessment Referral Date: 10/12/2018 Date of Assessment: 10/12/2018 Reason for consult: Self Pay Informant: SW Personal Status: SW met with pt to complete initial assessment. SW introduced self and role at [facility]. Pt is alert and orientated x4. Pt states that she lives with her niece and her niece's two kids. Pt states that she was previously independent with ADLs. Pt states that she is currently unemployed and is trying to get disability. 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 Pt states that she recently filed for disability couple weeks ago. Pt states that she has good support around her and states that her baby's daddy is good support for her. Pt states that she also has good relationships with her friends. Pt states that between her and her baby's daddy they have five kids together and states that she has good relationships with her children still. Pt states that her kids are currently with her father. Substance Abuse Hx: Pt states that she currently smokes cigarettes, denied any current substance abuse. Per H+P pt has history of methamphetamine and heroin use but has been clean since January 2018. Pt's toxicology did test positive for Opiates and Cannabinoids. Mental Health Hx: Pt states she has history of depression and anxiety. Pt denied taking any current medications. Pt states that she is linked up with a new psychiatrist at [facility] and has an appointment November 04. Pt states that she see's a counselor named Bhumi at [facility] and has been seeing her since June. Pt states that she has been in counseling since she was 5 years old. Pt states she see's her counselor about once a week but states she hasn't seen her counselor recently due to her health. Pt states that she has history of Suicidal and Homicidal thoughts/plans/ideations. Pt states she has been pink slipped multiple times for homicidal thoughts. Pt states that sometimes the thoughts were towards her . Pt states that her and her are legally but states that they have a good relationship now and that he plans on visiting her at [facility]. Pt states that she feels safe around her and at home and is ok with her visiting her at [facility]. Pt states that she and her still talk everyday. Pt denied any current Suicidal/Homicidal thoughts/plans/ideations. Pt confirms that she is self pay and doesn't have any insurance. Per PFS notes, Pt completed HCAP and Medicaid application and Medicaid application has been faxed to [facility]. SW provided pt with additional resources including [facility], [facility] assistance, [employer], [place] [address], and prescription assistance resources. Plan: Pt to discharge home once medically cleared and resume services at [facility] [employer], EMT B
[2018-10-12] MEDS: Ondansetron 4 MG/2 ML Vial IV ×2 (11:43→19:25)
[2018-10-12 14:21] VITALS: BP 91/63; PULSE 73; RESP 18; TEMP 36.9; O2SAT 96
[2018-10-12] MEDS: Magnesium Hydroxide 30 ML UDC PO (19:25)
[2018-10-12 20:13] VITALS: BP 107/79; PULSE 75; RESP 18; TEMP 36.9; O2SAT 98
--- NOTE | 2018-10-13 01:35 | NURSING ---
Pt had male visitor, she claims to be a nephew, leave the hospital to walk downtown to obtain a Sprite for her. Upon returning to floor, male visitor did not have a Sprite for patient. The charge nurse, Michelle, and the pt's primary nurse, Marino Casatñeda, had unsettling feeling about claim, and pulled up visual surveillance of room. As witnessed on the monitor by the charge nurse and primary nurse, Pt handed visitor her phone and a plastic card, and pulled a monetary bill from her wallet. Male figure pulled out a piece of paper and began to unfold it. He dumped what was in the paper onto the phone, and it appeared to be a white substance. Primary nurse proceeded to room, knocked once, and entered abruptly. Male figure readily covered the substance on the phone. When the nurse asked the male visitor what the substance was, his reply was, It's not mine. The nurse responded with, Yes, it is. Now, I can call the experimental plastics fabricator, or you can gather your belongings and leave the premises. Male figure agreed with leaving facility, and gathered his belongings in the presence of the nurse. The nurse clarified with the pt that there was no more stuff in the room. Pt denied any other substances. This nurse witnessed visitor leave the floor toward the elevators. Will continue to monitor pt and visitors.
[2018-10-13 02:20] VITALS: BP 101/52; PULSE 83; RESP 16; TEMP 36.8; O2SAT 98
[2018-10-13] MEDS: 0.9% Normal Saline 1,000 ML 150 ML IV ×4 (03:37→23:41)
[2018-10-13 04:07] LABS: Hepatitis A IgM Antibody Negative (Negative); Hepatitis B Core AB IgM Positive (Negative)
[2018-10-13] MEDS: DiphenhydrAMINE 25 MG Capsule PO ×3 (05:34→20:05)
[2018-10-13] MEDS: traMADol 50 MG Tablet PO ×3 (05:34→23:40)
[2018-10-13 06:21] LABS: Prothrombin Time (Protime)PT. 13.2 SECONDS (11.7-14.9)
[2018-10-13 06:22] LABS: Partial Thromboplast Time 38.7 Seconds (24.1-36.2)
[2018-10-13 06:23] LABS: ALB/GLOB Ratio 0.7 RATIO (0.9-2.4); AST(SGOT) 768 U/L (15-37); Alanine Aminotransfer ALT/SGPT 935 U/L (13-56); Albumin, Serum 2.7 g/dL (3.2-5.0); Alkaline Phosphatase 418 U/L (45-117); Anion Gap 6 (5-15); BUN 5 mg/dL (7-18); BUN/Creat Ratio 11.5 RATIO (10-20); Calcium,Total 8.5 mg/dL (8.5-10.1); Chloride 105 mmol/L (98-107); Creatinine, Serum 0.44 mg/dL (0.55-1.02); EST Glomerular Filtration Rate 177 mL/min (>60); Est Glom Filt Rate - Afr Amer 214 mL/min (>60); Estimated Creatinine Clearance 143.83 ml/min; Globulin 3.8 g/dL (2.2-4.2); Glucose 77 mg/dL (74-106); Potassium 4.1 mmol/L (3.5-5.1); Protein, Total 6.5 g/dL (6.4-8.2); Sodium Level 137 mmol/L (136-145)
[2018-10-13 06:45] LABS: Absolute Lymphocyte Count 3.08 X10^3/ul (0.83-4.51); Absolute Neutrophil Count 3.8 X10^3/uL (2.0-7.7); Basophil# 0.04 X10^3/uL; Basophil% 0.5 % (0-1); Eosinophil# 0.18 X10^3/uL; Eosinophils% 2.2 % (0-5); Hematocrit 38.7 % (37-47); Hemoglobin 13.2 g/dl (12.0-15.0); Lymphocyte # 3.08 X10^3/ul (4.0); Lymphocyte % 37.1 % (19-41); Mean Corp Hgb Conc 34.1 g/gl (32-36); Mean Corpuscular Hgb 28.7 pg (27.0-32.0); Mean Corpuscular Volume 84.1 fL (81-99); Mean Platelet Vol. 10.7 fl (6.2-12.0); Monocyte# 1.23 X10^3/uL; Monocyte% 14.8 % (0-10); Neutrophil # 3.75 X10^3/uL (2.7-7.7); Neutrophil % 45.2 % (47-70); Platelet Count 468 K/mm3 (150-450); RBC Distribution Width CV 22.8 % (11.6-14.6); RBC Distribution Width SD 66.3 fl (35.1-43.9); White Blood Count 8.3 K/mm3 (4.4-11.0)
[2018-10-13 06:53] LABS: Differential Indicated SCAN CRITERIA MET; POSITIVE COUNT NO; POSITIVE DIFFERENTIAL NO; POSITIVE MORPHOLOGY YES
[2018-10-13 07:15] VITALS: O2SAT 96
[2018-10-13 07:20] LABS: Anisocytosis 1+; Differential Comment SCAN; Platelet Estimate SLT INC (ADEQ)
[2018-10-13 07:21] LABS: Macrocytosis 1+
[2018-10-13 07:22] LABS: Polychromasia RARE
--- NOTE | 2018-10-13 08:13 | PN_ITS ---
Patient Problems: Active and Suspected Problems Acute hepatitis (Acute) Subjective: Patient overnight with continued mild itching as well as intermittent nausea but this resolves with antiemetics and she is tolerating diet. She denies any notable abdominal discomfort at this time and with examination with distraction no concerning exam findings. She did have visit her the evening prior and there was some concern about drug usage with pending repeat UDS currently. Reviewed all recent labs and plan of care with patient and she is amenable. Patient denies fevers, chills, emesis, worsened abdominal pain, chest pain or dyspnea. Objective: Physical Examination: General: awake, alert, oriented x 3 and cooperative, seated upright in bed in no apparent distress. Skin: Jaundiced color, normal turgor, mild scleral icterus, no cyanosis. HEENT: AT/NC, EOMI, PERRLA, mild scleral icterus, improved MMM, poor dentition, dental caries. Lungs: CTA bilaterally, moderate effort, mild decrease BL bases, no rales, ronchi or wheezing. Heart: Regular rate and rhythm; no gallop, rub audible. Abdomen: soft, NTTP w/ distraction otherwise generalized complaint, normalized bowel sounds. Extremities: no cyanosis, clubbing, or edema. Neurological: patient awake, alert, oriented x 3; cognitive function intact; p upils equally reactive to light and accomodation; cranial nerves II-XII grossly normal, moving all 4 extremities, no focal deficits, strength mildly globally decreased. Psychiatric: affect appears normal, no acute evidence of depressive or anxiety feelings. Vitals/I&O's: Vital Signs Temp Pulse Resp BP Pulse Ox 98.2 F 83 16 101/52 L 98 10/13/18 02:20 10/13/18 02:20 10/13/18 02:20 10/13/18 02:20 10/13/18 02:20 Oxygen Delivery Method Room Air Weight: 131 lb 6.328 oz Body Mass Index (BMI) 24.0 Intake and Output for Last 24 Hours 10/11/18 10/12/18 10/13/18 23:59 23:59 23:59 Intake Total 5096 / 5096 1097 / 1097 Output Total 3050 / 3050 700 / 700 Balance 2046 / 2046 397 / 397 Laboratory Results 10/11/18 20:18: Chlam trachomat DNA PCR Negative 10/11/18 20:18: N.gonorrhoeae DNA (PCR) Negative 10/12/18 06:00: HIV 1&2 Antibody Non-Reactive 10/13/18 05:40: WBC 8.3, RBC 4.60, Hgb 13.2, Hct 38.7, MCV 84.1, MCH 28.7, MCHC 34.1, RDW 22.8 H, RDW Differential 66.3 H, Plt Count 468 H, MPV 10.7, Immature Gran % (Auto) 0.200, Neut % (Auto) 45.2 L, Lymph % (Auto) 37.1, [place] % (Auto) 14.8 H, Eos % (Auto) 2.2, Baso % (Auto) 0.5, Absolute Neuts (auto) 3.8, Absolute Lymphs (auto) 3.08, Total Counted Not Reportable, Differential Comment SCAN, Platelet Estimate SLT INC, Polychromasia RARE, Anisocytosis 1+, Macrocytosis 1+ 10/13/18 05:40: Sodium 137, Potassium 4.1, Chloride 105, Carbon Dioxide 26.0, Anion Gap 6, BUN 5 L, Creatinine 0.44 L, Estim Creat Clear Calc 143.83, Est GFR (MDRD) Af Amer 214, Est GFR (MDRD) Non-Af 177, BUN/Creatinine Ratio 11.5, Glucose 77, Calcium 8.5, Total Bilirubin 8.80 H, AST 768 H, ALT 935 H, Alkaline Phosphatase 418 H, Total Protein 6.5, Albumin 2.7 L, Globulin 3.8, Albumin/Globulin Ratio 0.7 L 10/13/18 05:40: PT 13.2, INR 1.0, APTT 38.7 H Current Medications Albuterol Sulfate (Ventolin Aerosols) 2.5 mg INHALATION Q2H PRN PRN PRN Reason: sob/wheezing Diphenhydramine HCl (Benadryl) 25 mg PO Q6H PRN PRN PRN Reason: ITCHING Last Admin: 10/13/18 05:34 Dose: 25 mg Sodium Chloride () 1,000 mls @ 150 mls/hr IV .[id number] ODELL Last Admin: 10/13/18 03:37 Dose: 150 mls/hr Magnesium Hydroxide (Milk Of Magnesia) 30 ml PO DAILY PRN PRN PRN Reason: Constipation Last Admin: 10/12/18 19:25 Dose: 30 ml Nicotine (Nicoderm Cq (Pbkc)) 21 mg TRANSDERM. DAILY ODELL Last Admin: 10/12/18 08:45 Dose: 21 mg Ondansetron HCl (Zofran) 4 mg IV Q8H PRN PRN PRN Reason: NAUSEA Last Admin: 10/12/18 19:25 Dose: 4 mg Sodium Chloride () 5 - 15 ml IV UD PRN PRN Reason: SALINE FLUSH Last Admin: 10/12/18 11:43 Dose: 10 ml Tramadol HCl (Ultram) 50 mg PO Q8H PRN PRN PRN Reason: MODERATE PAIN (4-5/10) Last Admin: 10/13/18 05:34 Dose: 50 mg Medical Necessity - Tobacco Use Smoking Status: Current every day smoker Tobacco Use: Cigarettes Assessment/Plan All Active Problems Acute hepatitis (Acute) Left adnexal tenderness (Acute) Hypokalemia (Acute) Nausea & vomiting (Acute) The patient is a 33 y/o F w/ PMHx: History of Lymphoma in remission, Asthma/COPD, Former Tobacco use, Hx Polysubstance abuse who presents to the [facility] ED on 10/11/18 with history of onset jaundice, weakness, nausea, emesis, headache x 4 days with intake 500 mg tylenol x 4 tablets x 1. (1) Painless Jaundice with Elevated Bilirubin, LFTs: Workup in the ED included T 97.9, heart rate 91, BP 99/67, respiratory rate 18, 100% room air, CBC with W BC 9.6, hemoglobin 13.1, platelet 43 without market left shift, CMP with potassium 3.2, glucose 108, T bili 9.7, D bili 7.87, AST/ALT 921/1176, Alk phos 446, lipase 97, UDS unremarkable, acetaminophen < 2, hepatitis panel pending, GB US unremarkable, CT A/P w/ possible small bowel ileus, mild pelvic fluid, small left adnexal cystic nodule. Admitted to [place], repeat tylenol levels unremarkable, unremarkable salicylate level, HIV negative, pending RPR, negative CG/Ch PCR, coags not marked appearing. GGT elevated, will repeat today and in AM. Pending antimitochondrial AB, JOHN PAUL, Anti-smooth muscle AB and immunofixation. 10/13/18 labs again increased from day prior, T 8.80, AST/ALT 768/935, Alk phos 418. Continued hydration. From discussions with hepatology (no available for consult in hospital) agreed with plan and noted often route of presentation with transient increase again in enzymes, bili and GGT, would expect decrease possible 10/14/18. If hepatitis panel + would request ID evaluation, if negative would plan once labs trend down to discuss with GI for arranging close outpatient follow-up. (2) History of Lymphoma: Noted history, in remission, pending work-up as noted #1. (3) Asthma/COPD: HOB, IS, PRN albuterol. (4) Hx Polysubstance abuse: Notes clean since 01/2018 aside cannabis and adamantly denies any apparel fashion designer drug usage. Hepatitis panel pending, HIV negative, RPR pending, UDS w/ cannabis and opiates but had been given morphine. Visitor 10/12/18 evening, concern for drug usage during vision, will repeat UDS now. (5) History of Tobacco use: Encourage continued tobacco cessation. (6) DVT Prophylaxis: Low risk, ambulation. Code Visit Inpatient E&M: 73251 Subs Hosp L3
[2018-10-13 08:38] LABS: GGTP 228 U/L (5-55)
[2018-10-13 09:06] VITALS: BP 96/69; PULSE 74; PULSE 90; RESP 18; TEMP 36.7; O2SAT 98
[2018-10-13] MEDS: Ondansetron 4 MG/2 ML Vial IV (09:17)
[2018-10-13] MEDS: 0.9% NaCl Peripheral Flush Adult/Peds IV (09:19)
[2018-10-13 10:04] LABS: Amphetamine Urine VISTA NEGATIVE (<1000 ng/mL); Barbiturate Urine VISTA NEGATIVE (< 200 ng/mL); Benzodiazepine Urine VISTA NEGATIVE (< 200 ng/mL); Cocaine Urine VISTA NEGATIVE (< 300 ng/mL); Ecstacy Urine VISTA NEGATIVE (< 500 ng/mL); Methadone Urine VISTA NEGATIVE (< 300 ng/mL); PCP Urine VISTA NEGATIVE (< 25 ng/mL); THC Urine VISTA POSITIVE (< 50 ng/mL); Vista UDS pH Range 5
--- NOTE | 2018-10-13 13:18 | NURSING ---
1220 Asked if she could go down to the gift shop when her visitors came. She was instructed that she is now allowed of the unit.She asked why not, she was informed that nurses/staff cannot monitor her care if she is off the unit. AND if she does leave the unit she must sign a form that she is leaving the floor.
[2018-10-13 14:27] VITALS: PULSE 90
[2018-10-13 15:05] LABS: Hep C Antibodies <0.1 s/co ratio (0.0-0.9)
[2018-10-13 15:06] LABS: HEPATITIS B SURFACE AG Positive (Negative)
[2018-10-13] MEDS: Pantoprazole Sodium 20 MG Tablet PO ×2 (15:54→22:02)
[2018-10-13 22:00] VITALS: BP 116/78; PULSE 91; RESP 18; TEMP 36.8; O2SAT 99
[2018-10-14 01:30] LABS: Rapid Plasmin Reagin (RPR) NONREACTIVE (NONREACTIVE)
[2018-10-14 04:00] VITALS: BP 91/55; PULSE 79; RESP 16; TEMP 36.6; O2SAT 97
[2018-10-14] MEDS: DiphenhydrAMINE 25 MG Capsule PO ×2 (04:19→12:35)
[2018-10-14] MEDS: 0.9% Normal Saline 1,000 ML 150 ML IV (06:03)
--- NOTE | 2018-10-14 06:58 | PN_ITS ---
Patient Problems: Active and Suspected Problems Acute hepatitis (Acute) Subjective: Patient with no acute events overnight per self and per nursing report. She notes feeling improved although does complain of some mild hand bilateral edema with aggressive ongoing hydration. She denies any further market nausea, emesis or so or any abdominal discomfort. Jaundice has mildly improved as well. Discussed plan of care including recent lab results including hepatitis B with planned close follow-up with PCP, infectious disease as well as GI and is amenable. Patient denies fevers, chills, chest pain or dyspnea. Objective: Physical Examination: General: awake, alert, oriented x 3 and cooperative, seated upright in bed in no apparent distress, more well-appearing, less fatigued. Skin: Jaundiced color, normal turgor, mild scleral icterus, no cyanosis. HEENT: AT/NC, EOMI, PERRLA, improved scleral icterus, improved MMM, poor dentition. Lungs: CTA bilaterally, moderate effort, mild decrease BL bases, no rales, ronchi or wheezing. Heart: Regular rate and rhythm; no gallop, rub audible. Abdomen: soft, NTTP, normalized bowel sounds. Extremities: no cyanosis, clubbing, or edema. Neurological: patient awake, alert, oriented x 3; cognitive function intact; pupils equally reactive to light and accomodation; cranial nerves II-XII grossly normal, moving all 4 extremities, no focal deficits, strength proved, mildly globally decreased. Psychiatric: affect appears normal, no acute evidence of depressive or anxiety feelings. Vitals/I&O's: Vital Signs Temp Pulse Resp BP Pulse Ox 97.8 F 79 16 91/55 L 97 10/14/18 04:00 10/14/18 04:00 10/14/18 04:00 10/14/18 04:00 10/14/18 04:00 Oxygen Delivery Method Room Air Weight: 131 lb 6.328 oz Body Mass Index (BMI) 24.0 Intake and Output for Last 24 Hours 10/12/18 10/13/18 10/14/18 23:59 23:59 23:59 Intake Total 5096 / 5096 5749 / 5749 1194 / 1194 Output Total 3050 / 3050 2300 / 2300 800 / 800 Balance 2046 / 2046 3449 / 3449 394 / 394 Laboratory Results 10/11/18 18:30: Hepatitis A IgM Ab Negative, Hep Bs Antigen Positive H, Hep B Core IgM Ab Positive H, Hepatitis C Ab (EIA) <0.1 10/12/18 07:10: RPR NONREACTIVE 10/13/18 05:40: Total Counted Not Reportable, Differential Comment SCAN, Platelet Estimate SLT INC, Polychromasia RARE, Anisocytosis 1+, Macrocytosis 1+ 10/13/18 05:50: GGT 228 H 10/13/18 05:50: Anti-Smooth Muscle Ab Pending 10/13/18 08:40: JOHN PAUL Screen Pending, ANTON[place]TA-1 Antibody Pending, SS-A/Ro IgG Antibody Pending, SS-B/La IgG Antibody Pending, Sm (Stoner) Antibody Pending, [employer]ULT[employer] INTERN Antibody Pending, Scl-70 Scleroderma Ab Pending, Double Strand DNA Ab Pending, Centromere B Antibody Pending, Anti-Mitochondrial Ab Pending 10/13/18 08:40: IgG Pending, IgA Pending, IgM Pending 10/13/18 09:40: Urine Opiates Screen NEGATIVE, Urine Methadone Screen NEGATIVE, Ur Barbiturates Screen NEGATIVE, Ur Phencyclidine Scrn NEGATIVE, Ur Amphetamines Screen NEGATIVE, U Methamphetamin-MDMA NEGATIVE, U Benzodiazepines Scrn NEGATIVE, Urine Cocaine Screen NEGATIVE, U Cannabinoids Screen POSITIVE H, Ur Drug Screen Comment Current Medications Albuterol Sulfate (Ventolin Aerosols) 2.5 mg INHALATION Q2H PRN PRN PRN Reason: sob/wheezing Diphenhydramine HCl (Benadryl) 25 mg PO Q6H PRN PRN PRN Reason: ITCHING Last Admin: 10/14/18 04:19 Dose: 25 mg Sodium Chloride () 1,000 mls @ 150 mls/hr IV .Q6H40M ODELL Last Admin: 10/14/18 06:03 Dose: 150 mls/hr Magnesium Hydroxide (Milk Of Magnesia) 30 ml PO DAILY PRN PRN PRN Reason: Constipation Last Admin: 10/12/18 19:25 Dose: 30 ml Nicotine (Nicoderm Cq (Pbkc)) 21 mg TRANSDERM. DAILY ODELL Last Admin: 10/13/18 09:16 Dose: 21 mg Ondansetron HCl (Zofran) 4 mg IV Q8H PRN PRN PRN Reason: NAUSEA Last Admin: 10/13/18 09:17 Dose: 4 mg Pantoprazole Sodium (Protonix) 20 mg PO BID ODELL Last Admin: 10/13/18 22:02 Dose: 20 mg Sodium Chloride () 5 - 15 ml IV UD PRN PRN Reason: SALINE FLUSH Last Admin: 10/13/18 09:19 Dose: 10 ml Tramadol HCl (Ultram) 50 mg PO Q8H PRN PRN PRN Reason: MODERATE PAIN (4-5/10) Last Admin: 10/13/18 23:40 Dose: 50 mg Medical Necessity - Tobacco Use Smoking Status: Current every day smoker Tobacco Use: Cigarettes Assessment/Plan All Active Problems Acute hepatitis (Acute) Left adnexal tenderness (Acute) Hypokalemia (Acute) Nausea & vomiting (Acute) The patient is a 33 y/o F w/ PMHx: History of Lymphoma in remission, Asthma/COPD, Former Tobacco use, Hx Polysubstance abuse who presents to the [facility] ED on 10/11/18 with history of onset jaundice, weakness, nausea, emesis, headache x 4 days with intake 500 mg tylenol x 4 tablets x 1. (1) Painless Jaundice with Elevated Bilirubin, LFTs: Workup in the ED included T 97.9, heart rate 91, BP 99/67, respiratory rate 18, 100% room air, CBC with W BC 9.6, hemoglobin 13.1, platelet 43 without market left shift, CMP with potassium 3.2, glucose 108, T bili 9.7, D bili 7.87, AST/ALT 921/1176, Alk phos 446, lipase 97, UDS unremarkable, acetaminophen < 2, hepatitis panel pending, GB US unremarkable, CT A/P w/ possible small bowel ileus, mild pelvic fluid, small left adnexal cystic nodule. Admitted to [place], repeat tylenol levels unremarkable, unremarkable salicylate level, HIV negative, negative RPR, negative CG/Ch PCR, coags not marked appearing, GGT elevated. 10/13/18 labs again increased from day prior, T 8.80, AST/ALT 768/935, Alk phos 418, GGT 228. Repeat 10/14/18 labs improved, T bili 6.0, AST/ALT 711/794, Alk phos 399, GGT 200. As noted prior, reviewed with [employer] and had noted expectation for the transient increase with expected improvement today which has occurred. Hepatitis panel with + hepatitis B, chronic, requested ID evaluation prior to discharge. Encouraged strongly avoidance of illicit drug usage and still highest suspected etiology for her acute hepatic presentation. Pending antimitochondrial AB, JOHN PAUL, Anti- smooth muscle AB and immunofixation. Will plan evaluation per ID today, discharge w/ close follow-up with PCP within 3-5 days with repeat CMP in addition to GI for evaluation within 1 week. (2) History of Lymphoma: Noted history, in remission, work-up as noted #1. (3) Asthma/COPD: HOB, IS, PRN albuterol. (4) Hx Polysubstance abuse w/ Chronic Hepatitis B: Notes clean since 01/2018 aside cannabis and adamantly denies any body designer drug usage. Hepatitis panel + hepatitis B, HIV negative, RPR negative, UDS w/ cannabis and opiates but had been given morphine. Visitor 10/12/18 evening, concern for drug usage during vision, repeat UDS w/ cannabis noted. (5) History of Tobacco use: Encourage continued tobacco cessation. (6) DVT Prophylaxis: Low risk, ambulation.
[2018-10-14 07:19] VITALS: O2SAT 96
[2018-10-14 07:25] LABS: Absolute Lymphocyte Count 3.14 X10^3/ul (0.83-4.51); Absolute Neutrophil Count 3.9 X10^3/uL (2.0-7.7); Basophil# 0.02 X10^3/uL; Basophil% 0.3 % (0-1); Eosinophil# 0.21 X10^3/uL; Eosinophils% 2.6 % (0-5); Hematocrit 36.1 % (37-47); Hemoglobin 12.6 g/dl (12.0-15.0); Lymphocyte # 3.14 X10^3/ul (4.0); Lymphocyte % 39.4 % (19-41); Mean Corp Hgb Conc 34.9 g/gl (32-36); Mean Corpuscular Hgb 29.6 pg (27.0-32.0); Mean Corpuscular Volume 84.9 fL (81-99); Mean Platelet Vol. 9.4 fl (6.2-12.0); Monocyte# 0.72 X10^3/uL; Neutrophil # 3.87 X10^3/uL (2.7-7.7); Neutrophil % 48.6 % (47-70); Platelet Count 427 K/mm3 (150-450); RBC Distribution Width CV 21.2 % (11.6-14.6); RBC Distribution Width SD 65.1 fl (35.1-43.9); Red Blood Count 4.25 M/mm3 (4.2-5.4)
[2018-10-14 07:28] LABS: Differential Indicated SCAN CRITERIA MET; POSITIVE COUNT NO; POSITIVE DIFFERENTIAL NO; POSITIVE MORPHOLOGY YES
[2018-10-14 07:31] LABS: International Normalized Ratio 1.1; Prothrombin Time (Protime)PT. 13.9 SECONDS (11.7-14.9)
[2018-10-14 07:32] LABS: Partial Thromboplast Time 40.4 Seconds (24.1-36.2)
[2018-10-14 07:47] LABS: ALB/GLOB Ratio 0.7 RATIO (0.9-2.4); AST(SGOT) 711 U/L (15-37); Alanine Aminotransfer ALT/SGPT 794 U/L (13-56); Albumin, Serum 2.5 g/dL (3.2-5.0); Alkaline Phosphatase 399 U/L (45-117); BUN 5 mg/dL (7-18); Chloride 109 mmol/L (98-107); Creatinine, Serum 0.42 mg/dL (0.55-1.02); EST Glomerular Filtration Rate 185 mL/min (>60); Est Glom Filt Rate - Afr Amer 224 mL/min (>60); Estimated Creatinine Clearance 150.68 ml/min; GGTP 200 U/L (5-55); Globulin 3.8 g/dL (2.2-4.2); Glucose 92 mg/dL (74-106); Potassium 3.7 mmol/L (3.5-5.1); Protein, Total 6.3 g/dL (6.4-8.2); Sodium Level 138 mmol/L (136-145)
[2018-10-14 07:48] LABS: Anion Gap 6 (5-15)
--- NOTE | 2018-10-14 08:13 | DCINST_ITS ---
- Discharge Diagnoses Current Active Problems: Current Active and Chronic Problems (1) Painless Jaundice with Elevated Bilirubin, LFTs, Suspected secondary to Drug Toxicity, complicated by Hepatitis B status (2) Chronic Hepatitis B status (3) History of Lymphoma (3) Asthma/COPD (4) Hx Polysubstance abuse (5) Tobacco use Your food should be the consistency of: Regular Your liquids should be the consistency of: Regular/Thin Discharge Activity: - - Advise moderate activity only until re-evaluation per your Primary Care Physician and clinically improved from current acute presentation. May resume sexual activity in: - - Please see discharge instructions. Call your doctor if you observe: Fever of 101 or Higher, Inability to urinate, Inability to have a bowel movement, Shortness of breath, Dizziness, Fainting spells, Chest pain, Uncontrolled pain Instructions: Treating Hepatitis B (HBV), Understanding Hepatitis B (HBV), Signs of Addiction: Social Use, Addiction: Ask Yourself These Questions, Addiction: Getting Help, ED Drug Abuse General Additional Instructions: Please follow-up with your primary care physician, infectious disease and gastroenterology as directed. Please have repeat CMP (complete metabolic panel) with your primary care physician at follow-up. We strongly advise all avoidance of illicit drugs as this can heavily contribute to liver toxicity. Pending Tests on Discharge: Pending antimitochondrial AB, JOHN PAUL, Anti-smooth muscle AB and immunofixation upon discharge that should be re-evaluated upon result with your primary care physician as part of your liver work-up. Allergies/Adverse Reactions: Allergies aspirin Allergy (Verified 10/11/18 18:13) Other cyclobenzaprine HCl [From Flexeril] Allergy (Verified 10/11/18 18:13) Hives hydrocodone bitartrate [From Vicodin] Allergy (Verified 10/11/18 18:13) Hives morphine Allergy (Verified 10/11/18 18:13) Swelling naproxen Allergy (Verified 10/11/18 18:13) Chest tightness Penicillins Allergy (Verified 10/11/18 18:13) Unknown Sulfa (Sulfonamide Antibiotics) Allergy (Verified 10/11/18 18:13) Laryngospasms tramadol Allergy (Verified 10/11/18 18:13) Chest tightness Medications to take at Discharge Albuterol Inhaler [Ventolin Hfa] 2 puff INHALATION Q6H PRN PRN 10/11/18 DiphenhydrAMINE [Benadryl] 25 mg PO Q6H PRN PRN #20 cap 10/14/18 Nicotine [Nicoderm Cq] 21 mg TRANSDERM. DAILY #20 patch 10/14/18 Ondansetron HCl [Zofran] 4 mg PO Q8H PRN PRN #20 tab 10/14/18 The following prescriptions were given: DiphenhydrAMINE [Benadryl] 25 mg PO Q6H PRN PRN #20 cap PRN Reason: Itching Ondansetron HCl [Zofran] 4 mg PO Q8H PRN PRN #20 tab PRN Reason: Nausea, emesis Nicotine [Nicoderm Cq] 21 mg TRANSDERM. DAILY #20 patch Primary Care Physician: Shruthi Amor MD [Primary Care Provider] - Please follow up with your Primary Care Physician in: Follow-up within 3-4 days to review admission, follow-up on labs. Test Results: Test results from this visit will be discussed in further detail at your follow- up appointment, if applicable. Please Follow Up With: Chalo Phelan MD When: Follow-up for evaluation and treatment discussions Hepatitis B. Please Follow Up With: Agus Lemus MD When: Follow-up within 3-5 days for evaluation. Proposed Discharge Date: 10/14/18
[2018-10-14 08:18] VITALS: BP 105/73; PULSE 87; RESP 16; TEMP 37.2; O2SAT 98
--- NOTE | 2018-10-14 08:51 | DS.PCM_ITS ---
Discharge Date and Diagnosis - Problem List Patient Problems: Active and Suspected Problems Acute hepatitis (Acute) Date of Admission: 10/11/18 Date of Discharge: 10/14/18 - Primary Discharge Diagnosis Active and Suspected Problems (1) Painless Jaundice with Elevated Bilirubin, LFTs suspected secondary to Acute Hepatitis secondary to Drug Toxicity, complicated by Underlying Chronic Hepatitis B (2) History of Lymphoma (3) Asthma/COPD (4) Hx Polysubstance abuse w/ Chronic Hepatitis B (5) Tobacco use - Secondary Discharge Diagnosis Chronic Problems History of lymphoma (Chronic) COPD (chronic obstructive pulmonary disease) (Chronic) Asthma (Chronic) Hospital Course and Treatment Dr. Phelan Infectious Disease Discussed case with [employer], Dr. Jose Armando Diehl Operations: None Procedures: None Summary of Care Provided: The patient is a 33 y/o F w/ PMHx: History of Lymphoma in remission, Asthma/COPD, Former Tobacco use, Hx Polysubstance abuse who presented to the [facility] ED on 10/11/18 with history of onset jaundice, weakness, nausea, emesis, headache x 4 days with intake 500 mg tylenol x 4 tablets x 1. Workup in the ED included T 97.9, heart rate 91, BP 99/67, respiratory rate 18, 100% room air, CBC with W BC 9.6, hemoglobin 13.1, platelet 43 without market left shift, CMP with potassium 3.2, glucose 108, T bili 9.7, D bili 7.87, AST/ALT 921/1176, Alk phos 446, lipase 97, UDS unremarkable, acetaminophen < 2, hepatitis panel pending, GB US unremarkable, CT A/P w/ possible small bowel ileus, mild pelvic fluid, small left adnexal cystic nodule. Admitted to [place], repeat tylenol levels unremarkable, unremarkable salicylate level, HIV negative, negative RPR, negative CG/Ch PCR, coags not marked appearing, GGT elevated. 10/13/18 labs again increased from day prior, T 8.80, AST/ALT 768/935, Alk phos 418, GGT 228. Repeat 10/14/18 labs improved, T bili 6.0, AST/ALT 711/794, Alk phos 399, GGT 200. As noted prior, reviewed with [employer] and had noted expectation for the transient increase with expected improvement today which has occurred. Hepatitis panel with + hepatitis B, chronic, requested ID evaluation prior to discharge. Encouraged strongly avoidance of illicit drug usage and still highest suspected etiology for her acute hepatic presentation. Pending antimitochondrial AB, JOHN PAUL, Anti- smooth muscle AB and immunofixation. Obtained evaluation per ID on day of discharge w/ close follow-up with PCP within 3-5 days with repeat CMP in addition to GI for evaluation within 1 week. Patient Problems: Active and Suspected Problems Acute hepatitis (Acute) - Physical Exam Vital Signs Temp Pulse Resp BP Pulse Ox 97.8 F 79 16 91/55 L 96 10/14/18 04:00 10/14/18 04:00 10/14/18 04:00 10/14/18 04:00 10/14/18 07:19 Oxygen Delivery Method Room Air Weight: 131 lb 6.328 oz Body Mass Index (BMI) 24.0 Intake and Output for Last 24 Hours 10/12/18 10/13/18 10/14/18 23:59 23:59 23:59 Intake Total 5096 / 5096 5749 / 5749 1194 / 1194 Output Total 3050 / 3050 2300 / 2300 800 / 800 Balance 2046 / 2046 3449 / 3449 394 / 394 Laboratory Tests Past 24 Hrs 10/11/18 10/12/18 10/13/18 18:30 07:10 09:40 WBC RBC Hgb Hct MCV MCH MCHC RDW RDW Differential Plt Count MPV Immature Gran % (Auto) Neut % (Auto) Lymph % (Auto) [place] % (Auto) Eos % (Auto) Baso % (Auto) Absolute Neuts (auto) Absolute Lymphs (auto) Total Counted PT INR APTT Sodium Potassium Chloride Carbon Dioxide Anion Gap BUN Creatinine Estim Creat Clear Calc Est GFR (MDRD) Af Amer Est GFR (MDRD) Non-Af BUN/Creatinine Ratio Glucose Calcium Total Bilirubin GGT AST ALT Alkaline Phosphatase Total Protein Albumin Globulin Albumin/Globulin Ratio Urine Opiates Screen NEGATIVE Urine Methadone Screen NEGATIVE Ur Barbiturates Screen NEGATIVE Ur Phencyclidine Scrn NEGATIVE Ur Amphetamines Screen NEGATIVE U Methamphetamin-MDMA NEGATIVE U Benzodiazepines Scrn NEGATIVE Urine Cocaine Screen NEGATIVE U Cannabinoids Screen POSITIVE H Ur Drug Screen Comment RPR NONREACTIVE Hepatitis A IgM Ab Negative Hep Bs Antigen Positive H Hep B Core IgM Ab Positive H Hepatitis C Ab (EIA) <0.1 10/14/18 10/14/18 10/14/18 07:00 07:00 07:00 WBC 8.0 RBC 4.25 Hgb 12.6 Hct 36.1 L MCV 84.9 MCH 29.6 MCHC 34.9 RDW 21.2 H RDW Differential 65.1 H Plt Count 427 MPV 9.4 Immature Gran % (Auto) 0.100 Neut % (Auto) 48.6 Lymph % (Auto) 39.4 [place] % (Auto) 9.0 Eos % (Auto) 2.6 Baso % (Auto) 0.3 Absolute Neuts (auto) 3.9 Absolute Lymphs (auto) 3.14 Total Counted Not Reportable PT 13.9 INR 1.1 APTT 40.4 H Sodium 138 Potassium 3.7 Chloride 109 H Carbon Dioxide 23.0 Anion Gap 6 BUN 5 L Creatinine 0.42 L Estim Creat Clear Calc 150.68 Est GFR (MDRD) Af Amer 224 Est GFR (MDRD) Non-Af 185 BUN/Creatinine Ratio 12.0 Glucose 92 Calcium 8.0 L Total Bilirubin 6.00 H GGT 200 H AST 711 H ALT 794 H Alkaline Phosphatase 399 H Total Protein 6.3 L Albumin 2.5 L Globulin 3.8 Albumin/Globulin Ratio 0.7 L Urine Opiates Screen Urine Methadone Screen Ur Barbiturates Screen Ur Phencyclidine Scrn Ur Amphetamines Screen U Methamphetamin-MDMA U Benzodiazepines Scrn Urine Cocaine Screen U Cannabinoids Screen Ur Drug Screen Comment RPR Hepatitis A IgM Ab Hep Bs Antigen Hep B Core IgM Ab Hepatitis C Ab (EIA) Discharge Activity: - - Advise moderate activity only until re-evaluation per your Primary Care Physician and clinically improved from current acute presentation. May resume sexual activity in: - - Please see discharge instructions. Call your doctor if you observe: Fever of 101 or Higher, Inability to urinate, Inability to have a bowel movement, Shortness of breath, Dizziness, Fainting spells, Chest pain, Uncontrolled pain Home Medications: Medications to take at Discharge Albuterol Inhaler [Ventolin Hfa] 2 puff INHALATION Q6H PRN PRN 10/11/18 DiphenhydrAMINE [Benadryl] 25 mg PO Q6H PRN PRN #20 cap 10/14/18 Nicotine [Nicoderm Cq] 21 mg TRANSDERM. DAILY #20 patch 10/14/18 Ondansetron HCl [Zofran] 4 mg PO Q8H PRN PRN #20 tab 10/14/18 Following Prescrptions Were Given to Patient: DiphenhydrAMINE [Benadryl] 25 mg PO Q6H PRN PRN #20 cap PRN Reason: Itching Ondansetron HCl [Zofran] 4 mg PO Q8H PRN PRN #20 tab PRN Reason: Nausea, emesis Nicotine [Nicoderm Cq] 21 mg TRANSDERM. DAILY #20 patch Primary Care Physician: Shruthi Amor MD [Primary Care Provider] - Please follow up with your Primary Care Physician in: Follow-up within 3-4 days to review admission, follow-up on labs. Please Follow Up With: Chalo Phelan MD When: Follow-up for evaluation and treatment discussions Hepatitis B. Please Follow Up With: Agus Lemus MD When: Follow-up within 3-5 days for evaluation. Patient Instructions: Treating Hepatitis B (HBV), Understanding Hepatitis B (HBV), Signs of Addiction: Social Use, Addiction: Ask Yourself These Questions, Addiction: Getting Help, ED Drug Abuse General Disposition: Home Minutes spent on discharge:: 35 Patient Condition:: Stable Medical Necessity - Tobacco Use Smoking Status: Current every day smoker Tobacco Use: Cigarettes Meaningful Use Info Meaningful Use Diagnoses (Choose all that apply): None applicable Code Visit Inpatient E&M: 30130 Disch Hosp
[2018-10-14] MEDS: traMADol 50 MG Tablet PO (09:59)
[2018-10-14] MEDS: Ondansetron 4 MG/2 ML Vial IV (10:07)
[2018-10-14] MEDS: Pantoprazole Sodium 20 MG Tablet PO (10:07)
--- NOTE | 2018-10-14 13:13 | CON.PCM_ITS ---
Problem List (1) Acute hepatitis Status: Acute Reason for Consult: hepatitis Consulted by: Dr. Larose History of Present Illness: The patient is a 33 year old F who presented with 1-2 weeks of nausea, vomiting, sharp RUQ abd pain, jaundice, not feeling well. Reports boyfriend is IVDU with recent dx hep C. She denies IVDU or sharing needles. Reports neg hep panel about 6 months ago when she was in senior living. Had blood infection, treated in [facility] a few months ago. Came to ED here, LFTs were up, bili of 10. Hep B came back (+). Now feeling better, pain improved. Full ROS performed and neg except as noted above. - Medical History Past Medical History (Chronic Problems): Chronic Problems History of lymphoma (Chronic) COPD (chronic obstructive pulmonary disease) (Chronic) Asthma (Chronic) Allergies/Adverse Reactions: Allergies aspirin Allergy (Verified 10/11/18 18:13) Other cyclobenzaprine HCl [From Flexeril] Allergy (Verified 10/11/18 18:13) Hives hydrocodone bitartrate [From Vicodin] Allergy (Verified 10/11/18 18:13) Hives morphine Allergy (Verified 10/11/18 18:13) Swelling naproxen Allergy (Verified 10/11/18 18:13) Chest tightness Penicillins Allergy (Verified 10/11/18 18:13) Unknown Sulfa (Sulfonamide Antibiotics) Allergy (Verified 10/11/18 18:13) Laryngospasms tramadol Allergy (Verified 10/11/18 18:13) Chest tightness Home Medications: Ambulatory Orders Medication Instructions Recorded Albuterol Inhaler [Ventolin Hfa] 2 puff INHALATION Q6H PRN PRN 10/11/18 DiphenhydrAMINE [Benadryl] 25 mg PO Q6H PRN PRN #20 cap 10/14/18 Nicotine [Nicoderm Cq] 21 mg TRANSDERM. DAILY #20 patch 10/14/18 Ondansetron HCl [Zofran] 4 mg PO Q8H PRN PRN #20 tab 10/14/18 - Social History SMOKING STATUS:: Current every day smoker Vital Signs Temp Pulse Resp BP Pulse Ox 99.0 F 87 16 105/73 98 10/14/18 08:18 10/14/18 08:18 10/14/18 08:18 10/14/18 08:18 10/14/18 08:18 Oxygen Delivery Method Room Air Weight: 59.6 kg Body Mass Index (BMI) 24.0 Laboratory Tests Past 24 Hrs 10/11/18 10/12/18 10/14/18 18:30 07:10 07:00 WBC 8.0 RBC 4.25 Hgb 12.6 Hct 36.1 L MCV 84.9 MCH 29.6 MCHC 34.9 RDW 21.2 H RDW Differential 65.1 H Plt Count 427 MPV 9.4 Immature Gran % (Auto) 0.100 Neut % (Auto) 48.6 Lymph % (Auto) 39.4 [place] % (Auto) 9.0 Eos % (Auto) 2.6 Baso % (Auto) 0.3 Absolute Neuts (auto) 3.9 Absolute Lymphs (auto) 3.14 Total Counted Not Reportable PT INR APTT Sodium Potassium Chloride Carbon Dioxide Anion Gap BUN Creatinine Estim Creat Clear Calc Est GFR (MDRD) Af Amer Est GFR (MDRD) Non-Af BUN/Creatinine Ratio Glucose Calcium Total Bilirubin GGT AST ALT Alkaline Phosphatase Total Protein Albumin Globulin Albumin/Globulin Ratio RPR NONREACTIVE Hepatitis A IgM Ab Negative Hep Bs Antigen Positive H Hep B Core IgM Ab Positive H Hepatitis C Ab (EIA) <0.1 10/14/18 10/14/18 07:00 07:00 WBC RBC Hgb Hct MCV MCH MCHC RDW RDW Differential Plt Count MPV Immature Gran % (Auto) Neut % (Auto) Lymph % (Auto) [place] % (Auto) Eos % (Auto) Baso % (Auto) Absolute Neuts (auto) Absolute Lymphs (auto) Total Counted PT 13.9 INR 1.1 APTT 40.4 H Sodium 138 Potassium 3.7 Chloride 109 H Carbon Dioxide 23.0 Anion Gap 6 BUN 5 L Creatinine 0.42 L Estim Creat Clear Calc 150.68 Est GFR (MDRD) Af Amer 224 Est GFR (MDRD) Non-Af 185 BUN/Creatinine Ratio 12.0 Glucose 92 Calcium 8.0 L Total Bilirubin 6.00 H GGT 200 H AST 711 H ALT 794 H Alkaline Phosphatase 399 H Total Protein 6.3 L Albumin 2.5 L Globulin 3.8 Albumin/Globulin Ratio 0.7 L RPR Hepatitis A IgM Ab Hep Bs Antigen Hep B Core IgM Ab Hepatitis C Ab (EIA) - Other Studies Radiology: [] reviewed Other Studies: [] Route of nutrition/ use of supplements: [] Nutritional Intake: [] IV Site: [] Shaw Catheter: [] - Physical Exam General: Alert, Oriented x3, Cooperative, No apparent distress HEENT: Atraumatic, PERRLA, EOMI, - - poor dentition Neck: Supple, No Nodes Lungs: Clear to auscultation, Normal air movement Cardiovascular: Regular rate, Regular Rhythm Abdomen: Soft, Non-Distended, - - mild RUQ tenderness Extremities: No edema Skin: No rashes, - - jaundiced IV Site: Peripheral Musculoskeletal: No Tenderness to Palpation of Joints or Extremities Neurological: Cranial nerves II-XII grossly intact - Assessment/Plan Antibiotics: [] Assessment/Plan: [] Active and Suspected Problems Acute hepatitis (Acute) Acute hep B hepatitis - LFTs and sx improving. GI followup arranged. No need for antiviral therapy at this time. Discussed natural history of hep B infection, and household contacts should be tested. Will need repeat serologies and HBV pcr in the next few months to see if this becomes a chronic infection. Will follow, thank you, ok for d/c home, d/w Dr. Larose
[2018-10-14 16:08] LABS: Immunoglobulin A 205 mg/dL (87-352); Immunoglobulin G 1426 mg/dL (700-1600)
[2018-10-17 12:09] LABS: Immunoglobulin M 254 mg/dL (26-217)
[2018-10-17 12:16] LABS: Anti-Smooth Muscle ABS 9 Units (0-19)
[2018-10-17 12:16] LABS: ANTINUCLEAR ANTIBODIES DIRECT Negative (Negative); Anti-Mitochondrial AB <20.0 Units (0.0-20.0)
--- NOTE | 2018-10-18 15:54 | CASEMGMT ---
RUTH ANN GOMEZ Discharge Follow-up Phone Call: YUDITHCece: Aleksandr Strata: 3 Call Date: 10/18/18 Discharge Date: 10/14/18 Time of Call: 1555 Duration: 3 min Admitting Diagnosis: Acute Hepatitis RN JASON completed follow-up phone call after recent hospitalization. Patient is tired but doing well. Patient had no questions regarding discharge instructions. Follow-up appt were prior to discharge. Patient was able to fill prescriptions. Patient has no further questions or concerns at this time.
== END 2018-10-14 13:22 | disposition home or self-care (01) | DRG 918 ==
LOC: ED 22:08 → MS3 10-12 00:19
PROVIDERS: Internal Medicine; Admitting Provider Hospitalist; Emergency Provider Emergency Medicine; Family Provider Internal Medicine; PCP Internal Medicine; Visit Provider Family Medicine
DX: T50.901A Poisoning by unspecified drugs, medicaments and biological substances, accidental (unintentional), initial encounter (principal); B18.1 Chronic viral hepatitis B without delta-agent; K71.2 Toxic liver disease with acute hepatitis; E87.6 Hypokalemia; F17.210 Nicotine dependence, cigarettes, uncomplicated; Z85.72 Personal history of non-Hodgkin lymphomas; F19.10 Other psychoactive substance abuse, uncomplicated; J44.9 Chronic obstructive pulmonary disease, unspecified
CPT/HCPCS: 36415; 74177; 76705; 80048; 80053; 80074; 80076; 80307; 80329; 81001; 82784; 82977; 83516; 83690; 84703; 85025; 85027; 85610; 85730; 86038; 86225; 86235; 86334; 86592; 86703; 87491; 87591; 99284; 99406; J7030; J7120; Q9967; 90686; A4216; G0480; J2405

== ENCOUNTER → 2018-11-09 15:02 | Outpatient (CLI) | payer MEDICAID, SELFPAY ==
[2018-10-12 00:30] VITALS: BMI 24.0
[2018-11-09 17:51] LABS: AST(SGOT) 192 U/L (15-37); Alanine Aminotransfer ALT/SGPT 298 U/L (13-56); Albumin, Serum 3.6 g/dL (3.2-5.0); Alkaline Phosphatase 164 U/L (45-117); Bilirubin, Direct 0.63 mg/dL (0.00-0.30); Globulin 4.2 g/dL (2.2-4.2); Protein, Total 7.8 g/dL (6.4-8.2)
[2018-11-14 20:07] LABS: Hepatitis Be Ag Positive (Negative)
[2018-11-16 14:55] LABS: EBV Acute VCA IgM < 36.0 U/mL (0.0-35.9); EBV Early Antigen IgG <9.0 U/mL (0.0-8.9); EBV-VCA IgG > 600.0 U/mL (0.0-17.9); Hepatitis Be Ab Positive (Negative)
== END ==
PROVIDERS: Family Provider Internal Medicine; PCP Internal Medicine; Referring Provider Internal Medicine Gastroenterology; Visit Provider Internal Medicine Gastroenterology
DX: B19.10 Unspecified viral hepatitis B without hepatic coma (principal); R53.83 Other fatigue
CPT/HCPCS: 36415; 80076; 86663; 86664; 86665; 86707; 87350

== ENCOUNTER → 2018-12-23 16:08 | Outpatient (CLI) | payer MEDICAID, SELFPAY ==
[2018-12-27 12:07] LABS: HEPATITIS B SURFACE AG Confirm. indicated (Negative)
[2018-12-27 13:34] LABS: HBsAg Confirmation Positive (.)
== END ==
PROVIDERS: Family Provider Internal Medicine; PCP Internal Medicine; Referring Provider Internal Medicine Gastroenterology; Visit Provider Internal Medicine Gastroenterology
DX: B19.10 Unspecified viral hepatitis B without hepatic coma (principal)
CPT/HCPCS: 36415; 87340

== ENCOUNTER 2022-06-01 12:00 | Emergency (ER) | payer MEDICAID, SELFPAY ==
[2022-06-01] VITALS (8 sets, daily range): BP systolic 76–170; BP diastolic 52–119; PULSE 105–143; RESP 12–28; TEMP 35.3; O2SAT 80–100; BMI 26.4
--- NOTE | 2022-06-01 12:02 | EKG12_ITS ---
Test Reason : REPEAT Blood Pressure : / mmHG Vent. Rate : 114 BPM Atrial Rate : 114 BPM P-R Int : 148 ms QRS Dur : 092 ms QT Int : 340 ms P-R-T Axes : 076 059 072 degrees QTc Int : 468 ms Sinus tachycardia Septal infarct , age undetermined , cannot be excluded Abnormal ECG Confirmed by VAMSHI CAST, MARYANN ([id number]), proposal editor CALLIE JJ ([id number]) on 06/02/2022 11:39:19 AM Referred By: Confirmed By:MARYANN BONDS MD
--- NOTE | 2022-06-01 12:04 | CT_ITS ---
STUDY: CT BRAIN WITHOUT CONTRAST REASON FOR EXAM: Female, 38 years old. Altered MS RADIATION DOSAGE (If Supplied By Facility): CTDIvol = ( 44.99 ) mGy, DLP = ( 745.49 ) mGycm TECHNIQUE: Transaxial CT imaging of the brain was performed without administration of intravenous contrast material. Individualized dose optimization techniques were used for this CT. COMPARISON: No relevant priors. FINDINGS: Normal soft tissue structures. Normal calvarium. Normal size ventricles and extra-axial spaces for the patient''s age. Normal white matter tracts of the cerebral hemispheres. Normal basal ganglia and thalami. Normal brainstem. Normal cerebellum. There is no intracranial hemorrhage. There are no findings of an acute ischemic infarction. Normal visualized paranasal sinuses. CT/Brain/Head without Contrast IMPRESSION: Normal unenhanced CT scan of the brain. Electronically Signed: Sher Martinez MD at 13:24 EST ,
[2022-06-01] MEDS: 0.9% Normal Saline 1,000 ML 999 ML IV (12:05)
--- NOTE | 2022-06-01 12:05 | EDS_ITS ---
HPI History of Present Illness Chief Complaint: CPR Informant: EMS Onset/Context/Timing Onset: Today Narrative Narrative: Patient dropped off by private car, gentleman states that she became unresponsive 45 minutes ago and he does not know anything else. The gentleman then left. I evaluate the patient initially as staff is beginning CPR in the wheelchair in the hallway since there are no beds available. Identification of the female is unknown at this time so there is no known medical history, there was a surgical technician by the door outside that helped the gentleman bring the patient in, the surgical technician states that the gentleman told him the patient does not use drugs. [facility] Medical History (Updated 06/01/22 @ 14:[address] Rolo Bell MD) Stomach cancer Throat cancer Medical History unable to obtain unable to obtain Home Medications albuterol sulfate 90 mcg/actuation aerosol inhaler (Ventolin HFA) 2 puff inhalation Q6H PRN PRN Sob &/Or Wheezing 10/11/18 [History Last Taken Unknown] diphenhydramine HCl 25 mg capsule 25 mg PO Q6H PRN PRN Itching #20 caps 10/14/18 [Rx Last Taken Unknown] nicotine 21 mg/24 hr daily transdermal patch 21 mg TRANSDERM. DAILY #20 patches 10/14/18 [Rx Last Taken Unknown] ondansetron HCl 4 mg tablet 4 mg PO Q8H PRN PRN Nausea, emesis #20 tabs 10/14/18 [Rx Last Taken Unknown] Allergy/AdvReac Type Severity Reaction Status Date / Time aspirin Allergy Other Verified 10/11/18 18:13 cyclobenzaprine HCl Allergy Hives Verified 10/11/18 18:13 [From Flexeril] hydrocodone bitartrate Allergy Hives Verified 10/11/18 18:13 [From Vicodin] morphine Allergy Swelling Verified 10/11/18 18:13 naproxen Allergy Chest Verified 10/11/18 18:13 tightness Penicillins Allergy Unknown Verified 10/11/18 18:13 Sulfa (Sulfonamide Allergy Laryngospas Verified 10/11/18 18:13 Antibiotics) ms tramadol Allergy Chest Verified 10/11/18 18:13 tightness Surgical History unable to obtain unable to obtain Social History Smoking Status: Current every day smoker tobacco type: cigarettes ROS ROS ED Review of Systems ROS Unobtainable: due to mental status EXAM Physical Exam Const Vital Signs: 06/01/22 12:01 06/01/22 12:16 06/01/22 12:02 Temperature Temperature Source Pulse Rate Pulse Rate [4] 143 H Respiratory Rate Respiratory Rate [4] 18 Respiratory Effort Mechanically Ventilated Respiratory Pattern Blood Pressure Blood Pressure Mean Pulse Ox Oxygen Delivery Method Ambu-Bag Mechanical Ventilator Fraction of Inspired Oxygen (FIO2) 06/01/22 12:20 06/01/22 12:37 06/01/22 12:00 Temperature Temperature Source Pulse Rate 141 H 130 H 122 H Pulse Rate [4] Respiratory Rate 18 16 12 Respiratory Rate [4] Respiratory Effort Respiratory Pattern Normal Blood Pressure 76/52 L 170/113 H Blood Pressure Mean 60 132 Pulse Ox 97 100 100 Oxygen Delivery Method Mechanical Ventilator Mechanical Ventilator Fraction of Inspired Oxygen (FIO2) 60 06/01/22 12:00 06/01/22 13:13 06/01/22 13:38 Temperature 95.5 F L Temperature Source Temporal Pulse Rate 111 H 108 H Pulse Rate [4] Respiratory Rate 14 28 H Respiratory Rate [4] Respiratory Effort Respiratory Pattern Blood Pressure 159/119 H 129/91 H Blood Pressure Mean 132 103 Pulse Ox 100 99 Oxygen Delivery Method Room Air Mechanical Ventilator Fraction of Inspired Oxygen (FIO2) 06/01/22 14:34 06/01/22 15:39 Temperature Temperature Source Pulse Rate 107 H 105 H Pulse Rate [4] Respiratory Rate 19 H 21 H Respiratory Rate [4] Respiratory Effort Respiratory Pattern Blood Pressure 130/101 H 132/103 H Blood Pressure Mean 110 112 Pulse Ox 100 100 Oxygen Delivery Method Fraction of Inspired Oxygen (FIO2) Positive well nourished and well developed General Appearance ED: well developed and pallor Orientation / Consciousness: obtunded Exam Limitations: altered mental status HEENT normocephalic, atraumatic and cyanosis of lips/distal nose Eyes Pupil: fixed Positive for bilateral and not reactive Positive for bilateral Neck supple Chest Wall Chest Narrative: nml inspection, no flail w/ bagging Resp Resp Narrative: No spontaneous respirations. Breath sounds are bilaterally with bagging. Cardio Cardio Narrative: No heart sounds. Central pulses palpable with CPR only. GI non-distended Palpation: soft Neuro Neuro Narrative: Obtunded and flaccid x4. GCS 3T after intubation. Skin General Skin Exam: pallor Lesions: no lesions Rashes: no rashes MDM MDM MDM Narrative Medical decision making narrative: We continued CPR as we got the patient on a bed and in a room, and we were bagging the patient with room air, oxygen once we were able to connect the tank. We gave her some intranasal Narcan that did not have effect, after nursing was able to obtain an IV which was obtained just prior to us getting supplies for an intraosseous line which was not necessary at that time, and after we obtained access we gave her epinephrine 1 mg which we circulate for 2 minutes, in addition to Narcan 0.4 mg. None of this resulted in alertness, however at the first rhythm check, she does have an organized rhythm and a pulse. By the time we hooked the EKG machine to her, she appears to be in rapid atrial fibrillation, this is a limited evaluation is possible that this is sinus tachycardia but difficult to tell. Does not appear to be a STEMI. She was given another Narcan 2 mg IV after that in addition to putting her on the ventilator and obtaining work-up, her blood pressure is good on return of spontaneous circulation. Her pallor improved. Portable chest x-ray shows nothing acute on my interpretation good ETT placement. Subsequently she became hypotensive, we started prepping for central line and Levophed but prior to either 1 could be started, her blood pressure improved and was actually hypertensive so we held off and watch her closely, getting her over to CT for a head scan. Subsequently, her rhythm stabilized to what appeared to be sinus tachycardia at 130, I repeated EKG to confirm this. ABG shows a severe mixed respiratory metabolic acidosis so we will start her on a bicarb drip. Blood sugars in the 400s, we will continue fluid resuscitation and I added a serum acetone; that returned negative. Once we identified the patient and merged her record with her previous information in the EMR, it does not appear that she has a history of diabetes. Then she returned from CT, and started doing movements with her head that look like she was sitting her head up and then leaning her back repeatedly without any other convulsions, and still unresponsive on the ventilator. I looked at the head CT, it resembles diffuse cerebral edema without bleeding so she was then given Ativan followed by Betty suspecting this is probable seizure activity. COVID and influenza negative. Patient pancultured. Toxicology showing marijuana only. Family including arrived, can provide no helpful additional history and does not have any idea what happened this morning, stating that the person that was with her upon arrival was her uncle. He admits that she does have a history of drug use but does not know if she has been using recently or not. He also states she had a history of some type of lymphoma and liver issues does not know any specifics. He thinks that she had been to [facility] for this before, but upon speaking with them, they have no record of her being a cancer patient there, she was sent there for an EGD while she was an inmate at [facility], but unfortunately they have no ICU beds at this time. Discussed with raquel in [place] and they accept the patient. Looking for helicopter transport. Per radiology recommendations will pull the ETT back 1 cm to 24cm at the lip and repeated chest x-ray. On my interpretation, 1 view shows good placement. Patient now with eyes open and biting on the tube, GCS 6. KUB 1 view my interpretation shows good placement of the OG tube, radiology in agreement. Lab Data Attestation: I reviewed the patient's lab results. Labs: Laboratory Results - last 24 hr 06/01/22 06/01/22 06/01/22 12:05 12:05 12:05 WBC 17.6 H RBC 3.78 L Hgb 11.3 L Hct 38.5 MCV 101.9 H MCH 29.9 MCHC 29.4 L RDW Std Deviation 49.2 H RDW Coeff of Sheryl 13.2 Plt Count 392 MPV 10.2 Neut % (Auto) Not Reportable Absolute Neuts (auto) 5.1 Absolute Lymphs (auto) 11.62 H Total Counted 100 Neutrophils % (Manual) 29 L Lymphocytes % (Manual) 66 H Monocytes % (Manual) 4 Myelocytes % 1 H Diff Path Review May foll Platelet Estimate ADEQUATE RBC Morphology NORM C+C PT 17.1 H INR 1.4 APTT 57.1 H Sodium 138 Potassium 4.7 Chloride 103 Carbon Dioxide 15.0 L Anion Gap 20 H BUN 10 Creatinine 1.18 H Est GFR (MDRD) Af Amer 66 Est GFR (MDRD) Non-Af 54 L BUN/Creatinine Ratio 8.5 L Glucose 470 H* Lactic Acid Calcium 8.4 L Total Bilirubin 0.20 AST 106 H ALT 78 H Alkaline Phosphatase 84 Troponin I High Sens 9 Total Protein 6.0 L Albumin 2.9 L Globulin 3.1 Albumin/Globulin Ratio 0.9 Urine Color Urine Clarity Urine pH Ur Specific [place] Urine Protein Urine Glucose (UA) Urine Ketones Urine Occult Blood Urine Nitrite Urine Bilirubin Urine Urobilinogen Ur Leukocyte Esterase Urine RBC Urine WBC Ur Squamous Epith Cells Urine Bacteria Urine Mucus Urine Test Urine Opiates Screen Urine Methadone Screen Ur Barbiturates Screen Ur Phencyclidine Scrn Ur Amphetamines Screen MDMA (Ecstasy) Screen U Benzodiazepines Scrn Urine Cocaine Screen U Cannabinoids Screen Ur Drug Screen Comment Acetone Level 06/01/22 06/01/22 06/01/22 12:05 12:05 12:26 WBC RBC Hgb Hct MCV MCH MCHC RDW Std Deviation RDW Coeff of Sheryl Plt Count MPV Neut % (Auto) Absolute Neuts (auto) Absolute Lymphs (auto) Total Counted Neutrophils % (Manual) Lymphocytes % (Manual) Monocytes % (Manual) Myelocytes % Diff Path Review Platelet Estimate RBC Morphology PT INR APTT Sodium Potassium Chloride Carbon Dioxide Anion Gap BUN Creatinine Est GFR (MDRD) Af Amer Est GFR (MDRD) Non-Af BUN/Creatinine Ratio Glucose Lactic Acid 14.4 H* Calcium Total Bilirubin AST ALT Alkaline Phosphatase Troponin I High Sens Total Protein Albumin Globulin Albumin/Globulin Ratio Urine Color Yellow Urine Clarity Sl. Cloudy Urine pH 6.0 Ur Specific [place] 1.025 Urine Protein 30 H Urine Glucose (UA) Normal Urine Ketones 5 H Urine Occult Blood Negative Urine Nitrite Negative Urine Bilirubin Negative Urine Urobilinogen Normal Ur Leukocyte Esterase 25 H Urine RBC 0 SEEN Urine WBC 0-5 SEEN Ur Squamous Epith Cells 0-5 SEEN Urine Bacteria 1+ Urine Mucus 0 SEEN Urine Test Urine Opiates Screen Urine Methadone Screen Ur Barbiturates Screen Ur Phencyclidine Scrn Ur Amphetamines Screen MDMA (Ecstasy) Screen U Benzodiazepines Scrn Urine Cocaine Screen U Cannabinoids Screen Ur Drug Screen Comment Acetone Level NEGATIVE 06/01/22 06/01/22 12:26 12:26 WBC RBC Hgb Hct MCV MCH MCHC RDW Std Deviation RDW Coeff of Sheryl Plt Count MPV Neut % (Auto) Absolute Neuts (auto) Absolute Lymphs (auto) Total Counted Neutrophils % (Manual) Lymphocytes % (Manual) Monocytes % (Manual) Myelocytes % Diff Path Review Platelet Estimate RBC Morphology PT INR APTT Sodium Potassium Chloride Carbon Dioxide Anion Gap BUN Creatinine Est GFR (MDRD) Af Amer Est GFR (MDRD) Non-Af BUN/Creatinine Ratio Glucose Lactic Acid Calcium Total Bilirubin AST ALT Alkaline Phosphatase Troponin I High Sens Total Protein Albumin Globulin Albumin/Globulin Ratio Urine Color Urine Clarity Urine pH Ur Specific [place] Urine Protein Urine Glucose (UA) Urine Ketones Urine Occult Blood Urine Nitrite Urine Bilirubin Urine Urobilinogen Ur Leukocyte Esterase Urine RBC Urine WBC Ur Squamous Epith Cells Urine Bacteria Urine Mucus Urine Test Negative Urine Opiates Screen NEGATIVE Urine Methadone Screen NEGATIVE Ur Barbiturates Screen NEGATIVE Ur Phencyclidine Scrn NEGATIVE Ur Amphetamines Screen NEGATIVE MDMA (Ecstasy) Screen NEGATIVE U Benzodiazepines Scrn NEGATIVE Urine Cocaine Screen NEGATIVE U Cannabinoids Screen POSITIVE H Ur Drug Screen Comment Acetone Level ABG Data ABG results: ABG 06/01/22 12:19 Specimen Type ART Sample Site R Radial pH 6.73 L* Bicarbonate Actual 12.0 L Total CO2 15 Base Excess -24 L O2 Saturation 97 O2 % 60 ABG pCO2 90.2 H* ABG pO2 173 H Rehan Test Positive Respiration Rate 12 O2 Delivery Device Adult Vent Vent Mode AC Tidal Volume 450 POC PEEP 5 Crit Call To/Read Back Yes Blood Gas Notified Whom armando Radiography Chest X-Ray - ED: 1 View, Read by ED Physician and No Infiltrates Diagnostic Testing: Clinical Impression(s) from Imaging Studies Brain CT 06/01/22 12:04 IMPRESSION: Normal unenhanced CT scan of the brain. Electronically Signed: Sher Martinez MD at 13:24 EST , Chest X-Ray 06/01/22 12:12 IMPRESSION: The tip of the endotracheal tube should be pulled back approximately 2.6 cm. The tip of the orogastric tube is seen just distal to the gastroesophageal junction. Mild increased markings at the left lung base. Electronically Signed: Sher Martinez MD at 12:39 EST , Chest X-Ray 06/01/22 14:54 IMPRESSION: The tip of the endotracheal tube should be pulled back approximately 1 cm. Increased markings at the left lung base. Electronically Signed: Sher Martinez MD at 15:38 EST , KUB X-Ray 06/01/22 15:20 IMPRESSION: The tip of the nasogastric tube is in the fundal portion of the stomach. Electronically Signed: Sher Martinez MD at 15:38 EST , good ETT placement Rhythm Strip Rhythm Strip: A-fib Rate: 150 Ectopy: None EKG Initial EKG: Attestation: I personally reviewed and interpreted this EKG as follows: Interpretation: No Acute Injury Pattern and Atrial Fibrillation Prior EKG tracings: not available for review Follow-up EKG: Attestation: I personally reviewed and interpreted this EKG as follows: Interpretation: No Acute Injury Pattern and Sinus Tachycardia Comments: anterior Q waves w/o STEMI Procedures Intubations Intubation Method: orotracheal (7.5F ETT, 25cm lip; visualized passing through cords.) Intubation Verification: Positive color change and Bilateral breath sounds confirmed Intubation Complications: no complications Critical Care Time Critical Care Time: Yes Critical care time (excluding procedures): 30-74 minutes (60 min, not including procedure time), Including time spent:, Discussing w/Patient &/or Family/[place] [employer], Discussing w/Consultants, Arranging Admission or Transfer and Performing Direct Patient Care at Bedside Discharge Plan Triage Chief Complaint: CPR ED Provider: Rolo Bell Dx/Rx/DC Orders Clinical Impression: Unresponsive, Cardiopulmonary arrest with successful resuscitation, Acute hyperglycemia, Seizure-like activity Prescriptions: No Action albuterol sulfate [Ventolin HFA] 1 INHALER inhaler 2 puff inhalation Q6H PRN PRN (Reason: Sob &/Or Wheezing) diphenhydramine HCl 25 MG capsule 25 mg PO Q6H PRN PRN (Reason: Itching) Qty: 20 0RF nicotine 21 MG patch 21 mg TRANSDERM. DAILY Qty: 20 0RF ondansetron HCl 4 MG tablet 4 mg PO Q8H PRN PRN (Reason: Nausea, emesis) Qty: 20 0RF Primary Care Provider: Care Physician,No Primary Referrals: NOT,DEFINED [Non-Staff] - Disposition Disposition: Acute Care Hospital Discharge Location: [facility] Discharge Date/Time: 06/01/22 15:41
--- NOTE | 2022-06-01 12:12 | RAD_ITS ---
STUDY: X-RAY CHEST REASON FOR EXAM: Female, 38 years old. ETT placement/unresponsive TECHNIQUE: Single AP portable view of the chest. COMPARISON: None. FINDINGS: An endotracheal tube is seen in situ. The tip is at the level of the bhupinder. This should be pulled back approximately 2.6 cm. An orogastric tube is seen with the tip in the region of the gastroesophageal junction. Mild increased markings at the left lung base suggestive of atelectasis. There is no demonstrated pleural abnormality. Normal size heart. Normal mediastinum and beckie. Normal visualized pulmonary arteries. Normal visualized aortic arch and descending thoracic aorta. Normal visualized thoracic spine. Normal visualized ribs, clavicles, and shoulders. There is no demonstrated abnormality of the visualized soft tissue structures of the upper abdomen. RAD/Chest 1 View (Portable) IMPRESSION: The tip of the endotracheal tube should be pulled back approximately 2.6 cm. The tip of the orogastric tube is seen just distal to the gastroesophageal junction. Mild increased markings at the left lung base. Electronically Signed: Sher Martinez MD at 12:39 EST ,
[2022-06-01 12:20] LABS: Hematocrit 38.5 % (37-47); Hemoglobin 11.3 g/dL (12.0-15.0); Mean Corp Hgb Conc 29.4 g/dL (32-36); Mean Corpuscular Hgb 29.9 pg (27.0-32.0); Mean Corpuscular Volume 101.9 fL (81-99); Mean Platelet Vol. 10.2 fl (6.2-12.0); POSITIVE COUNT YES; POSITIVE DIFFERENTIAL YES; POSITIVE MORPHOLOGY YES; Platelet Count 392 K/mm3 (150-450); RBC Distribution Width CV 13.2 % (11.6-14.6); RBC Distribution Width SD 49.2 fl (35.1-43.9); Red Blood Count 3.78 M/mm3 (4.2-5.4); White Blood Count 17.6 K/mm3 (4.4-11.0)
[2022-06-01 12:21] LABS: International Normalized Ratio 1.4; Prothrombin Time (Protime)PT. 17.1 SECONDS (11.7-14.9)
--- NOTE | 2022-06-01 12:21 | ED.RN ---
1159 second narcan given. ambu bagging. sats 91%
[2022-06-01 12:22] LABS: Partial Thromboplast Time 57.1 Seconds (24.1-36.2)
[2022-06-01 12:23] LABS: Differential Indicated MANUAL DIFF
[2022-06-01 12:25] LABS: Allen Test Positive; Base Excess -24 mmol/L (-2 to +2); Blood Gas Specimen Type ART; FI02 60; Mode AC; O2 Delivery Device Adult Vent; PEEP 5; PO2 173 mmHG (75-100); RR 12; SITE R Radial; SO2 97 % (95-99); Total Carbon Dioxide 15 mmol/L; Vt 450; pCO2 90.2 mmHg (35-45); pH 6.73 (7.35-7.45)
[2022-06-01 12:29] LABS: Mucous, Urine 0 SEEN /hpf (<or=2+); Red Blood Cells-Urine 0 SEEN /hpf (0-5)
[2022-06-01 12:39] LABS: Lactic Acid 14.4 mmol/L (0.4-1.9)
[2022-06-01 12:40] LABS: ALB/GLOB Ratio 0.9 RATIO (0.9-2.4); AST(SGOT) 106 U/L (15-37); Alanine Aminotransfer ALT/SGPT 78 U/L (13-56); Albumin, Serum 2.9 g/dL (3.2-5.0); Alkaline Phosphatase 84 U/L (45-117); Anion Gap 20 (5-15); BUN 10 mg/dL (7-18); BUN/Creat Ratio 8.5 RATIO (10-20); Calcium,Total 8.4 mg/dL (8.5-10.1); Chloride 103 mmol/L (98-107); Creatinine, Serum 1.18 mg/dL (0.55-1.02); EST Glomerular Filtration Rate 54 mL/min (>60); Est Glom Filt Rate - Afr Amer 66 mL/min (>60); Globulin 3.1 g/dL (2.2-4.2); Glucose 470 mg/dL (74-106); Potassium 4.7 mmol/L (3.5-5.1); Sodium Level 138 mmol/L (136-145); Troponin-I HS 9 pg/mL (3.0-54.0)
[2022-06-01] MEDS: Naloxone 2 MG/2 ML Syringe 4 MG IV (12:41)
[2022-06-01] MEDS: Naloxone 0.4 MG/ML Syringe IV (12:41)
[2022-06-01 12:42] LABS: Color, Urine Yellow (Yellow); Glucose, Dipstick Normal (Normal); Ketone-Dipstick 5 mg/dl (Negative); Leukocyte Esterase-Dipstick 25 /ul (Negative); Nitrite-Dipstick Negative (Negative); Occult Blood-Urine Negative /ul (Negative); Protein-Dipstick 30 mg/dl (Negative); Specific Gravity, Urine 1.025 (1.002-1.030); Urine Bilirubin Dipstick Negative (Negative); Urine Clarity Sl. Cloudy (Clear); Urine Urobilinogen Normal (Normal)
--- NOTE | 2022-06-01 12:42 | EKG12_ITS ---
Test Reason : CODE Blood Pressure : / mmHG Vent. Rate : 149 BPM Atrial Rate : 149 BPM P-R Int : 122 ms QRS Dur : 080 ms QT Int : 270 ms P-R-T Axes : 060 000 191 degrees QTc Int : 425 ms Atrial fibrillation Low voltage QRS (Limb Leads) ST & T wave abnormality, consider lateral ischemia Abnormal ECG Confirmed by VAMSHI CAST, MARYANN ([id number]), fan mail editor CALLIE JJ ([id number]) on 06/02/2022 11:16:52 AM Referred By: DALILA Confirmed By:MARYANN BONDS MD
[2022-06-01] MEDS: Sodium Bicarbonate 8.4% 50 ML Syringe 50 MEQ IV (12:47)
[2022-06-01 12:48] LABS: Bacteria 1+ /hpf (None Seen); Squamous Epithelial Cells - UA 0-5 SEEN /hpf (5-10); White Blood Cells 0-5 SEEN /hpf (0-5)
[2022-06-01 12:57] LABS: Lymphocyte 66 % (19-41); Monocyte 4 % (0-10); Myelocyte 1 % (0-0); Neutrophil-Segmented 29 % (47-70); Total Cells Counted 100 (MANUAL DIFF)
[2022-06-01 12:58] LABS: Platelet Estimate ADEQUATE (ADEQ); Red Cell Morphology NORM C+C NORMAL (NORM C&C)
[2022-06-01 12:59] LABS: Absolute Lymphocyte Count 11.62 X10^3/uL (0.83-4.51); Absolute Neutrophil Count 5.1 X10^3/uL (2.0-7.7)
--- NOTE | 2022-06-01 13:07 | CM.ED ---
SW Note Referral Reason: [employer] Referral Source: Case Find SW responded to [employer]. No family present. SW remains available. SW was advised that patient's boyfriend, Parish De Luna, was in [facility]. Parish said that he and patient were together for 6 years. No kids. He said that he is boyfriend but we are liked . Parish said that he went to work this morning at [employer]. Parish said that he is living in [place] with patient. Parish voiced anger at patient's uncle, Wil and when asked about why he was angry he indicated to not worry about it further. SW was present when Parish and his grandmother were escorted back to the patient's room. SW remains available if needs arise. Akila TYLER
[2022-06-01] MEDS: LORazepam 2 MG/ML Syringe IV (13:19)
[2022-06-01 13:27] LABS: Vista UDS pH Range 6
[2022-06-01 13:29] LABS: Internal QC Validated? YES +Cl - CLEAR BKGD; Pregnancy, Urine Negative Negative
[2022-06-01] MEDS: levETIRAcetam IV 1,000 MG/100 ML BAG 400 MG IV (13:35)
[2022-06-01 13:54] LABS: Amphetamine Urine VISTA NEGATIVE (<1000 ng/mL); Barbiturate Urine VISTA NEGATIVE (< 200 ng/mL); Benzodiazepine Urine VISTA NEGATIVE (< 200 ng/mL); Cocaine Urine VISTA NEGATIVE (< 300 ng/mL); Ecstacy Urine VISTA NEGATIVE (< 500 ng/mL); Methadone Urine VISTA NEGATIVE (< 300 ng/mL); PCP Urine VISTA NEGATIVE (< 25 ng/mL); THC Urine VISTA POSITIVE (< 50 ng/mL)
--- NOTE | 2022-06-01 14:54 | RAD_ITS ---
STUDY: X-RAY CHEST REASON FOR EXAM: Female, 37 years old. Recheck ETT TECHNIQUE: Single AP portable view of the chest. COMPARISON: Comparison is made with prior study done earlier today at 3:16 PM. FINDINGS: The tip of the endotracheal tube is just proximal to the bhupinder. This should be withdrawn approximately 1 cm. An orogastric tube is seen with the tip below the left hemidiaphragm. Mild increased markings at the left lung base. There is no demonstrated pleural abnormality. Normal size heart. Normal mediastinum and beckie. Normal visualized pulmonary arteries. Normal visualized aortic arch and descending thoracic aorta. Normal visualized thoracic spine. Normal visualized ribs, clavicles, and shoulders. There is no demonstrated abnormality of the visualized soft tissue structures of the upper abdomen. RAD/Chest 1 View (Portable) IMPRESSION: The tip of the endotracheal tube should be pulled back approximately 1 cm. Increased markings at the left lung base. Electronically Signed: Sher Martinez MD at 15:38 EST ,
--- NOTE | 2022-06-01 15:20 | RAD_ITS ---
STUDY: X-RAY - ABDOMEN/PELVIS REASON FOR EXAM: Female, 37 years old. ng tube placement TECHNIQUE: Single AP view of the abdomen / pelvis. COMPARISON: None. FINDINGS: The tip of the nasogastric tube is in the fundal portion of the stomach. RAD/Abdomen Single View (Portable) IMPRESSION: The tip of the nasogastric tube is in the fundal portion of the stomach. Electronically Signed: Sher Martinez MD at 15:38 EST ,
[2022-06-01 16:10] LABS: Reflex Lactate? Y
[2022-06-02 15:04] LABS: Pathologist Review Reviewed
== END 2022-06-01 15:41 | disposition short-term general hospital (02) ==
PROVIDERS: Emergency Provider Emergency Medicine; Visit Provider Emergency Medicine
DX: I46.9 Cardiac arrest, cause unspecified (principal); R56.9 Unspecified convulsions; R31.9 Hematuria, unspecified; R73.9 Hyperglycemia, unspecified; E87.4 Mixed disorder of acid-base balance; F17.210 Nicotine dependence, cigarettes, uncomplicated
CPT/HCPCS: 31500; 36600; 51702; 70450; 71045; 74018; 80053; 80307; 81001; 81025; 82009; 82803; 83605; 84484; 85025; 85610; 85730; 87040; 87070; 87077; 87086; 87107; 87186; 87205; 87804; 87811; 92950; 93005; 94002; 99285; J7030; J7050; A4216; J2310